=== PATIENT | female | born 1935 | race Caucasian/White ===

== ENCOUNTER 2018-11-27 13:09 | Inpatient (IN) | payer OTHER ==
[2018-11-27] MEDS ORDERED: NS 500 ML IV ONE (13:32)
--- NOTE | 2018-11-27 13:37 | EDPHY ---
H & P Stated Complaint: Pt had flu-like x2wks c fever/diarrhea. Near-sync, R hip pn. Time Seen by Provider: 11/27/18 13:15 HPI/ROS: CHIEF COMPLAINT: Right hip pain HISTORY OF PRESENT ILLNESS: This is an 83-year-old female who lives independently. She has been ill for the last 2-3 weeks. This illness began with diffuse achiness followed by cough and now diarrhea. The diarrhea has markedly decreased but she is still having occasional loose stools. She states that when she moves her bowels she "empties out completely". As result of all of this, she has been feeling weak. She got up today to get a bowl of cereal, felt lightheaded, as if she might faint, and landed on the floor. She had right hip pain after landing. She was unable to get up off of the floor on her own but was able to crawl to her phone and summon 911. She did not strike her head. She does not think that she had an actual loss of consciousness. She does not take any blood thinning medications. She denies headache, chest pain, abdominal pain, recent vomiting, shortness of breath, and urinary symptoms. REVIEW OF SYSTEMS: A ten system review of systems was performed and is negative with the exception of the items mentioned in the HPI. Past medical history: Right lower extremity fracture Hypothyroidism Anxiety Past surgical history: Surgical repair of right lower extremity fracture Social history: She lives independently. She has help from caring seen years 2 afternoons per week. She does not use tobacco products or alcohol. 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 General Appearance: Alert. Vital signs reviewed. Blood pressure 154/99. Head: Normocephalic atraumatic. Eyes: Pupils equal and round, no conjunctival injection, no discharge. Anicteric. ENT, Mouth: Mucous membranes are slightly dry, no oropharyngeal erythema or edema. Neck: Nontender to palpation of the cervical spine in the midline. No pain with active range of motion of her neck. Respiratory: Lungs are clear to auscultation; no wheezes, rales, or rhonchi. Cardiovascular: Regular rate and rhythm; no murmur, rub, or gallop. Gastrointestinal: Abdomen is soft and nontender, no masses or organomegaly, bowel sounds normal. Skin: Warm and dry, no rashes on exposed skin, normal color. Back: Nontender to palpation over the thoracolumbar spine. No CVAT. Pelvis: Stable and nontender. Extremities: No lower extremity edema, no calf tenderness or swelling. No foreshortening of the right leg or external rotation. She has an abrasion along the lateral aspect of the left knee and the left foot. She has full active range of motion of her left hip, knee, and ankle. Neurological: Alert and oriented. Moving all four extremities easily and equally. Sensation intact to light touch over all 4 extremities. Pulses: 2+ dorsalis pedis pulses bilaterally, 2+ right femoral pulse. Psychiatric: Normal affect. - Medical/Surgical History Hx Asthma: No Hx Chronic Respiratory Disease: No Hx Diabetes: No Hx Cardiac Disease: No Hx Renal Disease: No Hx Cirrhosis: No Hx Alcoholism: No Hx HIV/AIDS: No Hx Splenectomy or Spleen Trauma: No Other PMH: HYPOTHYROID, ANXIETY - Social History Smoking Status: Never smoked Constitutional: Initial Vital Signs Temperature (C) 36.6 C 11/27/18 13:16 Heart Rate 83 11/27/18 13:16 Respiratory Rate 16 11/27/18 13:16 Blood Pressure 154/99 H 11/27/18 13:16 O2 Sat (%) 96 11/27/18 13:16 O2 Delivery Mode Room Air Allergies/Adverse Reactions: bupropion HCl [From Wellbutrin] Allergy (Unknown, Verified 11/27/18 13:16) Other-Enter Comments Penicillins Allergy (Verified 11/27/18 14:25) Unknown Home Medications: Medication Instructions Recorded Mirtazapine [Remeron] 15 mg PO HS 05/20/14 busPIRone [Buspar (*)] 2.5 mg PO BID 05/20/14 Amitriptyline HCl [Elavil 10 mg 15 mg PO HS 11/27/18 (*)] Gabapentin [Neurontin 100 MG (*)] 100 mg PO HS 11/27/18 Latanoprost 0.005% [Xalatan 0.005% 1 drops EACHEYE HS 11/27/18 (*)] Levothyroxine [Synthroid 50 mcg 50 mcg PO DAILY06 11/27/18 (*)] Medical Decision Making - Diagnostics EKG Interpretation: 12 lead EKG is interpreted in [place] by emergency department physician. Sinus rhythm with a rate in 99. 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 Imaging Results: Imaging Impressions Hip X-Ray 11/27/18 13:31 Impression: Displaced right femoral neck fracture, as above. Chest X-Ray 11/27/18 13:50 Impression: No evidence for acute cardiopulmonary abnormality. ED Course/Re-evaluation: 83-year-old female status post presyncope and fall. She presents with right hip pain. X-ray shows right femoral neck fracture. Dr. Forman has been consulted and plans to operate this evening. She is currently NPO. She will be admitted to the hospitalist service. She has been made aware of the plan and expresses anxiety--case management involved to help her with arrangements at home, as she has people scheduled to come in and help her tomorrow. She remained stable in the emergency department. I reviewed her EKG, chest x-ray, hip x-ray, and labs. I note that her creatinine is slightly high at 1.2. She has had high creatinine in the past but her most recent value was normal. In 2017 she had a creatinine of 1.1 and again in 2010 she had elevated creatinine. I also note that her blood pressure is high in the emergency department. She does not report a history of hypertension and does not take antihypertensive medications, per her report. Her EKG is abnormal with evidence of previous infarct. She does not report previous myocardial infarction. I do not think that she has had an IN today. Differential Diagnosis: I considered a differential diagnosis that includes but is not limited to intracranial hemorrhage, skull fracture, concussion, vertebral injury, spinal cord injury, intrathoracic injury, intra-abdominal injury, long bone fractures, contusions, abrasions, and lacerations. - Data Points Laboratory Results: Laboratory Results 11/27/18 14:13 11/27/18 14:13 11/27/18 11/27/18 11/27/18 14:20 14:13 14:13 WBC 7.84 10^3/uL 10^3/uL (3.80-9.50) RBC 4.28 10^6/uL 10^6/uL (4.18-5.33) Hgb 13.6 g/dL g/dL (12.6-16.3) Hct 40.3 % % (38.0-47.0) MCV 94.2 fL fL (81.5-99.8) MCH 31.8 pg pg (27.9-34.1) MCHC 33.7 g/dL g/dL (32.4-36.7) RDW 13.8 % % (11.5-15.2) Plt Count 292 10^3/uL 10^3/uL (150-400) MPV 9.4 fL fL (8.7-11.7) Neut % (Auto) 79.5 % H % (39.3-74.2) Lymph % (Auto) 12.5 % L % (15.0-45.0) [place] % (Auto) 6.9 % % (4.5-13.0) Eos % (Auto) 0.3 % L % (0.6-7.6) Baso % (Auto) 0.5 % % (0.3-1.7) Nucleat RBC Rel Count 0.0 % % (0.0-0.2) Absolute Neuts (auto) 6.24 10^3/uL 10^3/uL (1.70-6.50) Absolute Lymphs (auto) 0.98 10^3/uL L 10^3/uL (1.00-3.00) Absolute Monos (auto) 0.54 10^3/uL 10^3/uL (0.30-0.80) Absolute Eos (auto) 0.02 10^3/uL L 10^3/uL (0.03-0.40) Absolute Basos (auto) 0.04 10^3/uL 10^3/uL (0.02-0.10) Absolute Nucleated RBC 0.00 10^3/uL 10^3/uL (0-0.01) Immature Gran % 0.3 % % (0.0-1.1) Immature Gran # 0.02 10^3/uL 10^3/uL (0.00-0.10) Sodium 134 mEq/L L mEq/L (135-145) Potassium 4.3 mEq/L mEq/L (3.5-5.2) Chloride 96 mEq/L L mEq/L (97-110) Carbon Dioxide 23 mEq/l mEq/l (22-31) Anion Gap 15 mEq/L H mEq/L (6-14) BUN 9 mg/dL mg/dL (7-23) Creatinine 1.2 mg/dL H mg/dL (0.6-1.0) Estimated GFR 43 Glucose 115 mg/dL H mg/dL (70-100) Calcium 10.1 mg/dL mg/dL (8.5-10.4) POC Troponin I 0.01 ng/mL ng/mL (0.00-0.08) Medications Given: Discontinued Medications Diazepam (Valium) 5 mg IVP ONCE ONE Stop: 11/27/18 14:43 Last Admin: 11/27/18 14:43 Dose: 5 mg Sodium Chloride (Ns) 500 mls @ 1,000 mls/hr IV EDNOW ONE PRN Reason: Protocol Stop: 11/27/18 14:01 Last Admin: 11/27/18 14:18 Dose: 500 mls Point of Care Test Results: Chemistry 11/27/18 14:20 POC Troponin I 0.01 ng/mL ng/mL (0.00-0.08) Departure - Departure Disposition: [facility] Inpatient Acute Clinical Impression: Abrasion Femoral neck fracture Qualifiers: Encounter type: initial encounter Fracture type: closed Laterality: right Qualified Code(s): S72.001A - Fracture of unspecified part of neck of right femur, initial encounter for closed fracture Condition: Fair
[2018-11-27 14:23] LABS: PLATELET COUNT 292 10^3/uL (150-400)
[2018-11-27] MEDS ORDERED: DIAZEPAM 5 MG/ML 1 ML SYR ONE (14:38)
[2018-11-27] MEDS ORDERED: DIAZEPAM 5 MG/ML 1 ML SYR IVP ONE (14:42)
[2018-11-27] MEDS ORDERED: ONDANSETRON 4 MG/2 ML VIAL IVP PRN ×2 (14:54→21:59)
[2018-11-27] MEDS ORDERED: PROMETHAZINE HCL 25 MG/ML INJ IVP PRN (14:54)
[2018-11-27] MEDS ORDERED: ONDANSETRON DISINTEGRATING 4 MG TAB PO PRN (14:54)
[2018-11-27] MEDS ORDERED: DIAZEPAM 5 MG/ML 1 ML SYR IVP PRN (14:54)
[2018-11-27] MEDS ORDERED: HYDROmorphONE/DILAUDID 1 MG/ML INJ IVP PRN (14:54)
--- NOTE | 2018-11-27 15:52 | CPEKG ---
Test Reason : OPEN Blood Pressure : / mmHG Vent. Rate : 099 BPM Atrial Rate : 099 BPM P-R Int : 207 ms QRS Dur : 091 ms QT Int : 349 ms P-R-T Axes : 086 -84 083 degrees QTc Int : 448 ms Sinus rhythm Borderline prolonged AL interval Inferior infarct, old Probable anteroseptal infarct, old Confirmed by Latosha Trujillo ([id number]) on 11/27/2018 3:52:15 PM Referred By: LATOSHA TRUJILLO Confirmed By:Latosha Trujillo
--- NOTE | 2018-11-27 15:56 | PDGENHP ---
History and Physical - Chief Complaint fall, right hip and leg pain - History of Present Illness 83 yo F with PMH that includes depression and anxiety as well as longstanding issues with diarrhea that she notes has been worse for the last several weeks. she has been followed by Dr. Bacon for this in the past. She notes that due to diarrhea and overall decreased oral intake she was feeling weak and dehydrated and today she got up to get something to eat and had an episode where she felt lightheaded and as if she might faint, she sort of fell towards the ground in order to lie down and let the sxs pass, but fell to the ground harder than expected. Immediately after that she had right hip pain and she states she knew it was bad when it started to involve her entire right leg and not just the portion she landed on. She denies any preceding chest pain or palpitations, she denies any other recent changes in her health. She is extremely anxious at the time of my evaluation and history is limited by her anxiety and difficulty answering questions due to that. History Information - Allergies/Home Medication List Allergies/Adverse Reactions: bupropion HCl [From Wellbutrin] Allergy (Unknown, Verified 11/27/18 13:16) Other-Enter Comments Penicillins Allergy (Verified 11/27/18 14:25) Unknown Home Medications: Mirtazapine [Remeron] 15 mg PO HS 05/20/14 [Last Taken 11/26/18] busPIRone [Buspar (*)] 2.5 mg PO BID 05/20/14 [Last Taken 11/26/18 21:00] Amitriptyline HCl [Elavil 10 mg (*)] 15 mg PO HS 11/27/18 [Last Taken 11/26/18] Gabapentin [Neurontin 100 MG (*)] 100 mg PO HS 11/27/18 [Last Taken 11/26/18] Latanoprost 0.005% [Xalatan 0.005% (*)] 1 drops EACHEYE HS 11/27/18 [Last Taken 2 Weeks Ago ~11/13/18] Levothyroxine [Synthroid 50 mcg (*)] 50 mcg PO DAILY06 11/27/18 [Last Taken ] I have personally reviewed and updated: family history, medical history, social history, surgical history - Past Medical History psychiatric history (depression and anxiety) Additional medical history: hypothyroid. IBS. chronic diarrhea - Surgical History Additional surgical history: tib fib fx with rods placed - Family History Positive for: cancer (father with prostate, sister with lymphoma) - Social History Smoking Status: Never smoked Alcohol Use: None Drug Use: None Additional social history: lives alone, has home health Review of Systems Review of Systems: ROS: 10pt was reviewed & negative except for what was stated in HPI & below Physical Exam Physical Exam: Temp Pulse Resp BP Pulse Ox 36.5 C 82 18 149/96 H 99 11/27/18 15:45 11/27/18 15:45 11/27/18 15:45 11/27/18 15:45 11/27/18 15:25 Constitutional: uncomfortable, No no apparent distress Eyes: PERRL, anicteric sclera Ears, Nose, Mouth, Throat: poor dentition, dry mucous membranes Cardiovascular: regular rate and rhythym, no murmur, rub, or gallop, No edema Respiratory: no respiratory distress, no rales or rhonchi Gastrointestinal: normoactive bowel sounds, soft, non-tender abdomen Genitourinary: no bladder tenderness Skin: warm, normal color Musculoskeletal: joint tenderness, pain with ROM Neurologic: AAOx3 Psychiatric: anxious Lab Data & Imaging Review 11/27/18 14:13 11/27/18 14:13 WBC 7.84 10^3/uL (3.80-9.50) 11/27/18 14:13 RBC 4.28 10^6/uL (4.18-5.33) 11/27/18 14:13 Hgb 13.6 g/dL (12.6-16.3) 11/27/18 14:13 Hct 40.3 % (38.0-47.0) 11/27/18 14:13 MCV 94.2 fL (81.5-99.8) 11/27/18 14:13 MCH 31.8 pg (27.9-34.1) 11/27/18 14:13 MCHC 33.7 g/dL (32.4-36.7) 11/27/18 14:13 RDW 13.8 % (11.5-15.2) 11/27/18 14:13 Plt Count 292 10^3/uL (150-400) 11/27/18 14:13 MPV 9.4 fL (8.7-11.7) 11/27/18 14:13 Neut % (Auto) 79.5 % (39.3-74.2) H 11/27/18 14:13 Lymph % (Auto) 12.5 % (15.0-45.0) L 11/27/18 14:13 [place] % (Auto) 6.9 % (4.5-13.0) 11/27/18 14:13 Eos % (Auto) 0.3 % (0.6-7.6) L 11/27/18 14:13 Baso % (Auto) 0.5 % (0.3-1.7) 11/27/18 14:13 Nucleat RBC Rel Count 0.0 % (0.0-0.2) 11/27/18 14:13 Absolute Neuts (auto) 6.24 10^3/uL (1.70-6.50) 11/27/18 14:13 Absolute Lymphs (auto) 0.98 10^3/uL (1.00-3.00) L 11/27/18 14:13 Absolute Monos (auto) 0.54 10^3/uL (0.30-0.80) 11/27/18 14:13 Absolute Eos (auto) 0.02 10^3/uL (0.03-0.40) L 11/27/18 14:13 Absolute Basos (auto) 0.04 10^3/uL (0.02-0.10) 11/27/18 14:13 Absolute Nucleated RBC 0.00 10^3/uL (0-0.01) 11/27/18 14:13 Immature Gran % 0.3 % (0.0-1.1) 11/27/18 14:13 Immature Gran # 0.02 10^3/uL (0.00-0.10) 11/27/18 14:13 Sodium 134 mEq/L (135-145) L 11/27/18 14:13 Potassium 4.3 mEq/L (3.5-5.2) 11/27/18 14:13 Chloride 96 mEq/L (97-110) L 11/27/18 14:13 Carbon Dioxide 23 mEq/l (22-31) 03/25/19 14:13 Anion Gap 15 mEq/L (6-14) H 11/27/18 14:13 BUN 9 mg/dL (7-23) 11/27/18 14:13 Creatinine 1.2 mg/dL (0.6-1.0) H 11/27/18 14:13 Estimated GFR 43 11/27/18 14:13 Glucose 115 mg/dL (70-100) H 11/27/18 14:13 Calcium 10.1 mg/dL (8.5-10.4) 11/27/18 14:13 POC Troponin I 0.01 ng/mL (0.00-0.08) 11/27/18 14:20 Visualized and Interpreted Chest x-ray results: Yes Chest X-Ray results: no infiltrate Visualized and Interpreted imaging results: Yes Interpretation: hip xray: displaced right femoral neck fracture Visualized and Interpreted EKG results: Yes EKG Interpretation: Positive for: Q waves Assessment & Plan Assessment: Femoral neck fracture (Acute) 83 yo F with minimal PMH other than depression, anxiety and hypothyroid who presents s/p fall at home with femoral neck fracture # acute right femoral neck fracture: Dr. Forman of ortho has been consulted and plans to take patient to OR likely tonight. Patient has revised cardiac risk index of 1 (only for q waves on ecg) which makes her relatively low risk for significant cardiac event in perioperative period (approximately 1%), no reason to delay surgery for further testing. # near syncope: in the setting of reportedly long standing diarrhea and likely due to volume depletion however given ecg abnormality without known hx of CAD will get echocardiogram in am for further evaluation, as above, no sxs of acute cardiac conditions so will not recommend deferring surgery for this # pavel: in the setting of weeks of dehydration due to diarrhea and feeling poorly as above, will provide IVF overnight and recheck in am # diarrhea: reviewing reports from Dr. Bacon it appears this has been an ongoing issue for her for at least a year, she has had extensive workup and tried various medications, sounds as though it waxes and wanes to some extent. Likely due to IBS and functional. # anxiety: patient with chronic anxiety that has been severe today in the setting of getting news about her fracture, started diazepam prn and will continue her buspar. Age noted in terms of diazepam order, but severity of her anxiety warrants at least a trial of benzodiazepines for today, will dc as soon as able # IP status, will require > 48 hours stay for eval/mgmt and urgent surgical intervention, may require SNF after dc given she lives alone # FC--unable to have full discussion about this given her anxiety, she states she does have an advance directive but could not find on file, will need to address further in am Patient new to my care. Old records reviewed and summarized as above. Care plan reviewed with ER doctor including plans for surgery.
[2018-11-27] MEDS ORDERED: LR 1,000 ML IV ONE ×2 (17:29→19:16)
--- NOTE | 2018-11-27 19:49 | PDANEPAE ---
ANE Past Medical History - Pulmonary History Hx Oxygen in Use at Home: No Hx Sleep Apnea: No Sleep Apnea Screening Result - Last Documented: Positive - Endocrine History Hx Diabetes: No ANE Review of Systems Review of Systems: ANE Patient History - Allergies Allergies/Adverse Reactions: bupropion HCl [From Wellbutrin] Allergy (Unknown, Verified 11/27/18 13:16) Other-Enter Comments Penicillins Allergy (Verified 11/27/18 14:25) Unknown - Home Medications Home Medications: Mirtazapine [Remeron] 15 mg PO HS 05/20/14 [Last Taken 11/26/18] busPIRone [Buspar (*)] 2.5 mg PO BID 05/20/14 [Last Taken 11/26/18 21:00] Amitriptyline HCl [Elavil 10 mg (*)] 15 mg PO HS 11/27/18 [Last Taken 11/26/18] Gabapentin [Neurontin 100 MG (*)] 100 mg PO HS 11/27/18 [Last Taken 11/26/18] Latanoprost 0.005% [Xalatan 0.005% (*)] 1 drops EACHEYE HS 11/27/18 [Last Taken 2 Weeks Ago ~11/13/18] Levothyroxine [Synthroid 50 mcg (*)] 50 mcg PO DAILY06 11/27/18 [Last Taken ] - NPO status NPO Since - Liquids (Date): 11/26/18 NPO Since - Liquids (Time): 19:00 NPO Since - Solids (Date): 11/27/18 NPO Since - Solids (Time): 10:00 - Smoking Hx Smoking Status: Never smoked - Alcohol Use Alcohol Use: None ANE Labs/Vital Signs - Labs Result Diagrams: 11/27/18 14:13 11/27/18 14:13 - Vital Signs Blood Pressure: 136/73 Heart Rate: 92 Respiratory Rate: 16 O2 Sat (%): 98 Height: 173.99 cm Weight: 39.916 kg ANE Physical Exam - Airway Mallampati Score: Class 2 - ASA Status ASA Status: II, E ANE Anesthesia Plan Anesthesia Plan: general endotracheal anesthesia, GA w LMA
[2018-11-27] MEDS ORDERED: PROPOFOL 200 MG/20 ML VIAL ONE (19:54)
[2018-11-27] MEDS ORDERED: fentaNYL 100 MCG/2 ML INJ ONE ×2 (19:54→22:08)
[2018-11-27] MEDS ORDERED: ONDANSETRON 4 MG/2 ML VIAL ONE (19:56)
[2018-11-27] MEDS ORDERED: LIDOCAINE 2% JELLY 6 ML TOPICAL SYR ONE (19:56)
[2018-11-27] MEDS ORDERED: CEFAZOLIN 2 GM/DEXTROSE/100 ML BAG IV ONE (19:57)
[2018-11-27] MEDS ORDERED: ceFAZolin 2 GM/DEXTROSE 100 ML IV ONE (20:01)
--- NOTE | 2018-11-27 21:41 | PDMN ---
Medical Necessity Medical necessity: Pt meets inpt criteria per MD order and [facility] S-600, Hip: Displaced Fracture of Femoral Neck, Hemiarthroplasty, [facility] IP only list, 3 days. 83 y/o s/p fall after near syncopal episode admitted w/acute R displaced femoral neck fx, urgent surg intervention: R hip hemiarthroplasty. Other active comorbidities include anxiety, severe upon presentation in ED, ongoing diarrhea , and MAHI in setting of dehydration. Anticipate>2MN for tx of above.
--- NOTE | 2018-11-27 21:56 | POSTOPPROG ---
Post Op Note Date of Operation: 11/27/18 Surgeon: Jhonny Forman Anesthesia: LMA Pre-op Diagnosis: R femoral neck fx Post-op Diagnosis: same Procedure: R hip hemiarthroplasty Inf/Abcess present in the surg proc area at time of surgery?: No EBL: 50-100
[2018-11-27] MEDS ORDERED: MEPERIDINE 25 MG/0.5 ML AMP IVP PRN (21:59)
[2018-11-27] MEDS ORDERED: METOCLOPRAMIDE 10 MG/2 ML VIAL IVP PRN (21:59)
[2018-11-27] MEDS ORDERED: NALOXONE HCL 0.4 MG/ML INJ IVP PRN (21:59)
[2018-11-27] MEDS ORDERED: LR 500 ML IV PRN (21:59)
--- NOTE | 2018-11-27 22:01 | POSTANESTH ---
Post Anesthetic Evaluation Cardiovascular Status: Normal, Stable Respiratory Status: Normal, Stable Level of Consciousness/Mental Status: Can Participate in Eval Pain Control: Adequate, Prn Tx Ordered Nausea/Vomiting Control: Adequate, Prn Tx Ordered Complications Possibly Related to Anesthesia: None Noted
[2018-11-27] MEDS: fentaNYL 100 MCG/2 ML INJ IVP PRN ×2 (22:24→22:34)
[2018-11-27] MEDS: busPIRone 5 MG TAB PO SCH (23:06)
[2018-11-27] MEDS: AMITRIPTYLINE HCL 10 MG TAB PO SCH (23:06)
[2018-11-27] MEDS: LATANOPROST 0.005% 2.5 ML OPHT DROPS EACHEYE SCH (23:07)
[2018-11-27] MEDS: GABAPENTIN 100 MG CAP PO SCH (23:07)
[2018-11-27] MEDS: NS 1,000 ML IV SCH (23:42)
[2018-11-28] MEDS: MIRTAZAPINE 15 MG TAB PO SCH ×2 (00:10→21:27)
[2018-11-28 05:05] LABS: PLATELET COUNT 248 10^3/uL (150-400)
[2018-11-28] MEDS: LEVOTHYROXINE 50 MCG TAB PO SCH (05:57)
[2018-11-28] MEDS: oxyCODONE IR 5 MG TAB PO PRN ×3 (06:49→16:44)
--- NOTE | 2018-11-28 07:07 | SOAPPROG ---
SOAP Progress Note Assessment/Plan: Assessment: S/P R hip hemiarthroplasty Pain tolerable Magaly po R hip dressing intact Lrg length and rotation~ equal Plan: OOB/PT SNF transfer when ready 11/28/18 07:06 Objective: Vital Signs Temp Pulse Resp BP Pulse Ox 36.3 C 111 H 16 125/82 H 91 L 11/28/18 04:27 11/28/18 04:27 11/28/18 04:27 11/28/18 04:27 11/28/18 04:27 Laboratory Results 11/28/18 04:21 11/28/18 04:21 11/27/18 11/28/18 11/29/18 05:59 05:59 05:59 Intake Total 1875 844 Output Total 650 Balance 1225 844 ICD10 Worksheet Patient Problems: Problems Problem Status Onset Abrasion Acute Femoral neck fracture Acute
--- NOTE | 2018-11-28 07:09 | PDIAF ---
- Diagnosis Code Status: Full Code - Medication Management Discharge Medications: electronically signed and located in the Home Medication List. - Orders Wound Care Instructions: Keep incision covered until bobby removed Sutures/Lloyd Site: R thigh Date to Remove Sutures/Lloyd: 12/13/18 Activity/Weight Bearing Restrictions: Weight bearas tolerated. Total hip precautions - Follow Up Care Current Providers and Referrals: Patient,NotPresent [Unknown] - As per Instructions
--- NOTE | 2018-11-28 07:21 | GCON ---
[f rep st] CONSULTATION REASON FOR CONSULTATION: Right hip pain. HISTORY RELATIVE TO CONSULTATION: Patient is an 83-year-old limited household ambulator with assisti ve devices, who sustained a fall resulting in a right femoral neck fracture. She presented to the em ergency room. She denies any previous problems or injuries relative to her hip. PHYSICAL EXAMINATION: GENERAL: She is holding her hip in an outwardly rotated position with shorten ing of her leg length. Her distal neurovascular exam is grossly intact. She has tenderness about th e anterior hip. IMAGING: AP and lateral radiographs of her hip show evidence of a displaced femoral neck fracture. ASSESSMENT: Right femoral neck fracture. PLAN: It is recommended that operative treatment be pursued. From an operative standpoint, hip carlton arthroplasty was recommended. This will be performed pending OR availability and medical clearance. /[id number]/MODL
[2018-11-28] MEDS: busPIRone 5 MG TAB PO SCH ×2 (07:36→21:27)
[2018-11-28] MEDS: NS 1,000 ML IV SCH (07:39)
--- NOTE | 2018-11-28 08:32 | HOSPPROG ---
Hospitalist Progress Note Assessment/Plan: # R hip fx - s/p SHREYA by Dr Forman, POD#1 - PT/OT - pain control with apap, norco, oxy # anxiety/depr - got one dose of valium IV - will dc today given age - cont buspar, elavil, remeron # tachycardia - many reasons currently, follow closely; doubt PE currently - recheck hgb later today # syncope - ECG with old inf and anteroseptal infarcts; no olds available and unable to find pt in [place] - echo ordered today # chronic diarrhea/IBS - followed by Dr Bacon # COR - did not want to discuss with me; cont FC for now # dvt ppx - will d/w Dr Forman when appropriate to start; will need prolonged course Subjective: no CP or SOB; does not want to discuss advance directive; wants to eat breakfast before getting out of bed Objective: Vital Signs Temp Pulse Resp BP Pulse Ox 36.5 C 106 H 16 113/70 93 11/28/18 07:30 11/28/18 07:30 11/28/18 07:30 11/28/18 07:30 11/28/18 07:30 Laboratory Results 11/28/18 04:21 11/28/18 04:21 11/27/18 11/28/18 11/29/18 05:59 05:59 05:59 Intake Total 1875 844 Output Total 650 Balance 1225 844 chart reviewed hip XR reviewed - Physical Exam Constitutional: cachectic, other (frail) Cardiovascular: regular rate and rhythym, no murmur, rub, or gallop Respiratory: no rales or rhonchi, clear to auscultation, No expiratory wheeze, No inspiratory crackles Gastrointestinal: soft, non-tender abdomen, no palpable masses, No guarding, No rebound, No distension ICD10 Worksheet Patient Problems: Problems Problem Status Onset Abrasion Acute Femoral neck fracture Acute
--- NOTE | 2018-11-28 09:02 | GOP ---
[f rep st] OPERATIVE REPORT DATE OF OPERATION: 11/27/2018 SURGEON: Jhonny Forman MD ANESTHESIA: General. PREOPERATIVE DIAGNOSIS: Right femoral neck fracture. POSTOPERATIVE DIAGNOSIS: Right femoral neck fracture. PROCEDURE PERFORMED: Right hip hemiarthroplasty. FINDINGS: ESTIMATED BLOOD LOSS: Approximately 100 mL. INDICATIONS: The patient is an 83-year-old limited ambulator who sustained a right femoral neck frac ture. Based on the nature of her injury, it was recommended that operative treatment consisting of r ight hip hemiarthroplasty be pursued. Patient acknowledged she understood the potential risks includ ing, but not limited to, bleeding, infection, neurovascular damage including loss of limb or limb fun ction, implant failure requiring revision, periprosthetic fracture, limb length discrepancy, or pain or limitations despite operative treatment and anesthetic risks. She acknowledged she understood the potential risks, planned procedure, and postoperative plan well, and had all questions answered prio r to surgery. She gave consent for the operative procedure. DESCRIPTION OF PROCEDURE: The patient was brought in the operating after IV antibiotics were adminis tered. She was placed in a supine position where general anesthetic was administered. Patient was t ransferred to a left lateral decubitus position on the operating table with pegboard support and gel padding. The right hip and lower extremity were prepped and draped in standard sterile fashion. An anterolateral approach was utilized for exposure. A longitudinal incision was made centered on the g reater trochanter. Dissection was carried with the electrocautery unit down to the gluteal fascia. The fascia was incised in line with the skin incision and extended down the proximal thigh. A limite d portion of the gluteal insertion was taken off the greater trochanter. The anterior capsule was id entified and opened in an H-type manner. A provisional neck cut was made with a saw. The femoral he ad was taken out in 1 piece with a corkscrew and measured to be 45 mm. A trial 45 mm cup size was pe rformed and found to be optimal. The hip was dislocated, and reaming was performed. A box osteotome was initially utilized to create a lateralizing position. The reamer was then placed on the intrame dullary canal. Sequential broaches were then used. A size 8 gave close to favorable contact. A siz e 9 gave excellent contact of the canal with stability of the stem to rotational and testing-type str esses. A -3 head and neck extension, 45 mm trial head was placed and reduction was obtained. The re duction was somewhat difficult, but very stable upon being performed. A definitive size 9 Ruddy he miarthroplasty press-fit implant was placed with a -3 initial head and a 45 mm bipolar head. Closed reduction was performed; once again, this was very stable. Leg lengths were measured and found to be equal. Attempts at dislocating the hip via maximal flexion and external rotation proved unsuccessfu l. Attention was directed toward closure. The capsule was closed with 0 Vicryl suture in interrupte d fashion. The gluteal reflected tendon was similarly inserted with 0 Vicryl suture in interrupted f ashion. The gluteal fascia was closed with 0 Vicryl suture in interrupted fashion. Deep subcutaneou s tissue closed with 3-0 Vicryl suture in interrupted fashion. Subcutaneous tissue closed with 3-0 V icryl in interrupted fashion. Skin closed with skin bobby. 0.5% Marcaine with epinephrine was inj ected in the wound sites. The wounds were dressed with sterile Adaptic, 4 x 4, and ultimately, an AB D. The patient tolerated the procedure well and was taken to the recovery room, extubated in stable condition postoperatively. All sponge, needle, and instrument counts were reported as being correct. DRAINS: None. COMPLICATIONS: None. PLAN: The patient will be admitted for medical management. She will be weightbearing on her operati ve extremity. /[id number]/MODL
[2018-11-28] MEDS: ENOXAPARIN 30 MG/0.3 ML SYR SC SCH (10:29)
--- NOTE | 2018-11-28 11:14 | ASMTCMCOM ---
CM Note CM Note Notes: Pt has R hip fx after fall at home. Pt resides alone, has some private duty care with [facility]. PT rec SNF. Pt provided SNF list, reports she will discuss SNF options with friends and let CM know choice. Pt non-triggering PASRR completed. D/c plan: SNF Date Signed: 11/28/2018 11:14 AM Electronically Signed By:YONG Cordon
[2018-11-28] MEDS: ACETAMINOPHEN 325 MG TAB PO PRN (12:42)
[2018-11-28] MEDS ORDERED: NS 1,000 ML IV ONE (14:45)
[2018-11-28] MEDS ORDERED: NS 1,000 ML IV SCH (17:30)
[2018-11-28 18:09] LABS: PLATELET COUNT 234 10^3/uL (150-400)
[2018-11-28] MEDS ORDERED: POTASSIUM CL 20 MEQ TAB PO ONE (18:36)
[2018-11-28] MEDS: GABAPENTIN 100 MG CAP PO SCH (21:25)
[2018-11-28] MEDS: AMITRIPTYLINE HCL 10 MG TAB PO SCH (21:25)
[2018-11-28] MEDS: LATANOPROST 0.005% 2.5 ML OPHT DROPS EACHEYE SCH (22:25)
[2018-11-29 05:14] LABS: PLATELET COUNT 194 10^3/uL (150-400)
[2018-11-29] MEDS: LEVOTHYROXINE 50 MCG TAB PO SCH (05:39)
[2018-11-29] MEDS: LR 1,000 ML IV SCH (07:07)
[2018-11-29] MEDS: ENOXAPARIN 30 MG/0.3 ML SYR SC SCH (08:55)
[2018-11-29] MEDS: busPIRone 5 MG TAB PO SCH ×2 (08:56→22:26)
[2018-11-29] MEDS: ACETAMINOPHEN 325 MG TAB PO PRN (08:58)
--- NOTE | 2018-11-29 09:16 | HOSPPROG ---
Hospitalist Progress Note Assessment/Plan: Linda is an 83 y/o female who fell at home and sustained a femoral neck fx. First encounter, chart reviewed. 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 Will evaluate her tomorrow and see how she is doing Subjective: Ana Laura said she wants to be strong enough to go to rehab. Objective: Vital Signs Temp Pulse Resp BP Pulse Ox 36.6 C 101 H 16 138/87 H 96 11/29/18 07:33 11/29/18 07:33 11/29/18 07:33 11/29/18 07:33 11/29/18 07:33 Laboratory Results 11/29/18 05:04 11/29/18 05:04 11/28/18 11/29/18 11/30/18 05:59 05:59 05:59 Intake Total 1875 1853 Output Total 650 500 Balance 1225 1353 - Physical Exam Constitutional: chronically ill appearing, cachectic Eyes: PERRL Ears, Nose, Mouth, Throat: hearing normal Respiratory: no respiratory distress Gastrointestinal: normoactive bowel sounds Skin: other (right hip w swelling) Musculoskeletal: generalized weakness Neurologic: AAOx3 Psychiatric: anxious ICD10 Worksheet Patient Problems: Problems Problem Status Onset Abrasion Acute Femoral neck fracture Acute
--- NOTE | 2018-11-29 12:45 | ECHO ---
[email or web address] [address] [address] Main: [phone] Echocardiography Examination Transthoracic Name: EVIE PARIKH MR#: [id number] Study Date: 11/29/2018 Study Time: 11:42 AM Date of : 1935 Age: 83 year(s) Height: 172.7 cm (68 in.) Weight: 39.92 kg (88 lb.) BSA: 1.44 m2 Gender: Female Examination: Echo Contrast: Image Quality: Adequate Rhythm: Heart Rate: BP: / Indication: q-waves on ECG Procedure Staff Referring Physician: Dope Edger: Kasandra Christian [facility] Reading Physician: Clemente Nance MD Requesting Provider: Indication: q-waves on ECG Measurements Chambers AV/MV Label Value Normal Value Label Value Normal Value IVSd, 2D 0.8 cm (0.6cm - 1.1cm) AV PGmean 5 mmHg LVDd, 2D 2.8 cm (3.9cm - 5.3cm) YANELY D (continuity eq. 2.4 cm2 LVDs, 2D 2 cm (2.1cm - 4cm) VTI) LVEF, 2D 58 % (54% - 74%) MV A Vmax 1.1 m/s LVEF, BP 68 % (55% - 70%) MV DT 165 ms LVOT PGmean 3 mmHg MV E' lateral 0.07 m/s LVOT Vmean 0.77 m/s MV E' mean 0.07 m/s LVOTd 1.9 cm (1.8cm - 2cm) MV E' septal 0.07 m/s LVPWd, 2D 0.9 cm MV E Vmax 0.84 m/s RVDd, 2D 2.2 cm (1.9cm - 3.8cm) MV E/A 0.76 LADs, 2D 1.9 cm (2.7cm - 3.8cm) MV E/E' lateral 11.5 Additional Vessels MV E/E' mean 12 Label Value Normal Value MV E/E' septal 11.5 (0.45 - 1.25) AoRoot, 2D 2.7 cm (1.4cm - 2.6cm) MV PHT 0.05 s MV PHT 45 ms MVA PHT 4.9 cm2 TV/PV Label Value Normal Value RA Pressure 5 mmHg RVSP 35 mmHg Patient: EVIE PARIKH Study Date: 11/29/2018 Page 1 of 3 11:42 AM TR Pmax 30 mmHg TR Vmax 2.76 m/s Conclusions Left Ventricle: Left ventricle is normal in size. Normal global systolic left ventricular function. The ejection fraction, measured by Simpsons method, is 68 %. Grade I Diastolic Dysfunction. Right Ventricle: Right ventricular systolic function is normal. Tricuspid Valve: Right Ventricular systolic pressure is measured at 35 mmHg. Pulmonary artery pressure is mildly increased. Pericardium: No pericardial effusion. Findings Technically difficult, patient very thin, limited imaging. Left Ventricle: Left ventricle is normal in size. Normal global systolic left ventricular function. The ejection fraction, measured by Simpsons method, is 68 %. Left ventricle wall thickness is normal. There are no regional wall motion abnormalities. Grade I Diastolic Dysfunction. Right Ventricle: Normal size right ventricle. Right ventricular systolic function is normal. Left Atrium: The left atrium is normal in size. Right Atrium: The right atrium is normal in size. Mitral Valve: Mitral valve appears structurally normal. Mild mitral regurgitation. No mitral valve stenosis. There is minimal mitral thickening. There is mild mitral annular calcification. Aortic Valve: No significant aortic valve regurgitation. There is no aortic stenosis. Aortic leaflets exhibit calcification. Aortic valve not well visualized. Tricuspid Valve: Tricuspid valve leaflets are structurally normal. Mild tricuspid regurgitation. No tricuspid valve stenosis. Right Ventricular systolic pressure is measured at 35 mmHg. Pulmonary artery pressure is mildly increased. Pulmonic Valve: Pulmonic valve not well visualized. Aorta: The aortic root size in 2D measures 2.7 cm. Aorta Measurements AoRoot, 2D is 2.7 cm. Pericardium: No pericardial effusion. Exam Details Procedure Ordered: Echo Procedure Status: Routine study Patient: EVIE PARIKH Study Date: 11/29/2018 Page 2 of 3 11:42 AM Image Quality: Adequate Facility Location: Cardiac Echo 1 (No Signature Object) Patient: EVIE PARIKH Study Date: 11/29/2018 Page 3 of 3 11:42 AM [id number]
--- NOTE | 2018-11-29 14:15 | SOAPPROG ---
SOAP Progress Note Assessment/Plan: a/p: 83 yo female, pod# 2 s/p right hip fx s/p right yulia by dr. shields, doing well, improving w/o issues, reports pain is relatively well controlled, no current issues/complaints -on hospitalist service -rle wbat -ptot -incentive spirometry/scd's/eber miguel Subjective: RLE: dressings c/d/i, no drainage appreciated, neg log roll, grossly nvid Objective: Vital Signs Temp Pulse Resp BP Pulse Ox 36.7 C 99 20 116/72 97 11/29/18 12:00 11/29/18 12:00 11/29/18 12:00 11/29/18 12:00 11/29/18 12:00 Laboratory Results 11/29/18 05:04 11/29/18 05:04 11/28/18 11/29/18 11/30/18 05:59 05:59 05:59 Intake Total 1875 2823 Output Total 650 500 Balance 1225 1353 ICD10 Worksheet Patient Problems: Problems Problem Status Onset Abrasion Acute Femoral neck fracture Acute
[2018-11-29] MEDS: HYDROCODONE/APAP 5/325 TAB PO PRN ×3 (14:20→22:25)
[2018-11-29] MEDS: GABAPENTIN 100 MG CAP PO SCH (22:25)
[2018-11-29] MEDS: MIRTAZAPINE 15 MG TAB PO SCH (22:26)
[2018-11-29] MEDS: AMITRIPTYLINE HCL 10 MG TAB PO SCH (22:26)
[2018-11-29] MEDS: LATANOPROST 0.005% 2.5 ML OPHT DROPS EACHEYE SCH (22:27)
[2018-11-30] MEDS: LEVOTHYROXINE 50 MCG TAB PO SCH (07:11)
[2018-11-30] MEDS: busPIRone 5 MG TAB PO SCH ×2 (08:18→20:24)
[2018-11-30] MEDS: HYDROCODONE/APAP 5/325 TAB PO PRN (08:19)
[2018-11-30] MEDS: ACETAMINOPHEN 325 MG TAB PO PRN ×3 (08:20→20:25)
[2018-11-30] MEDS: ENOXAPARIN 30 MG/0.3 ML SYR SC SCH (08:21)
--- NOTE | 2018-11-30 08:32 | HOSPPROG ---
Hospitalist Progress Note Assessment/Plan: Linda is an 83 y/o female who fell at home and sustained a femoral neck fx. 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 -reviewed echo results w Ana Laura, nothing acute noted # severe protein calorie malnutrition -underweight w a BMI of 13 -eating and drinking well # chronic diarrhea/IBS - followed by Dr Bacon # COR - # dvt ppx - Lovenox, will need a long course #plan: dc tomorrow most likely to [facility] Subjective: Ana Laura is feeling ok today, mainly wants me to talk w her brother after she finds his phone # Objective: Vital Signs Temp Pulse Resp BP Pulse Ox 36.5 C 100 15 130/76 H 94 11/30/18 07:52 11/30/18 07:52 11/30/18 07:52 11/30/18 07:52 11/30/18 07:52 Laboratory Results 11/29/18 05:04 11/29/18 05:04 11/29/18 11/30/18 12/01/18 05:59 05:59 05:59 Intake Total 1853 600 Output Total 500 350 100 Balance 1353 250 -100 - Physical Exam Constitutional: cachectic Eyes: PERRL Ears, Nose, Mouth, Throat: hard of hearing Cardiovascular: regular rate and rhythym, No tachycardia Respiratory: no respiratory distress Skin: warm, No normal color (pale) Musculoskeletal: generalized weakness Neurologic: AAOx3 Psychiatric: interacting appropriately ICD10 Worksheet Patient Problems: Problems Problem Status Onset Abrasion Acute Femoral neck fracture Acute
--- NOTE | 2018-11-30 09:58 | CPEKG ---
Test Reason : OPEN Blood Pressure : / mmHG Vent. Rate : 102 BPM Atrial Rate : 104 BPM P-R Int : 225 ms QRS Dur : 087 ms QT Int : 336 ms P-R-T Axes : 057 -73 082 degrees QTc Int : 438 ms Sinus tachycardia Prolonged CO interval Left anterior fascicular block Abnormal R-wave progression, early transition Consider left ventricular hypertrophy Similar to prior Confirmed by Ashish Bey ([id number]) on 11/30/2018 9:57:55 AM Referred By: Clayton Jacinto Confirmed By:Ashish Bey
--- NOTE | 2018-11-30 15:39 | ASMTCMCOM ---
CM Note CM Note Notes: Met with pt, she is here for a hip fracture. She lives alone and will need to transfer to SNF. She wants to stay in [place] and would like referral to go to [facility], they can accept and are waiting for insurance auth. DC Plan: SNF/ [facility] Date Signed: 11/30/2018 03:39 PM Electronically Signed By:Sabi Gracia RN
--- NOTE | 2018-11-30 18:14 | SOAPPROG ---
SOAP Progress Note Assessment/Plan: Assessment: Assessment/Plan: a/p: 83 yo female, pod# 3 s/p right hip fx s/p right yulia by dr. shields doing okay - pain with movement -on hospitalist service -rle wbat -ptot -incentive spirometry/scd's/eber miguel Plan: 11/30/18 18:13 Subjective: Ana Laura was seen this morning 730 am. She was just finishing on the bedside commode, with help from the aide. No acute events overnight. Pain movement. Objective: Vital Signs Temp Pulse Resp BP Pulse Ox 36.4 C 117 H 14 92/59 L 100 11/30/18 16:00 11/30/18 16:00 11/30/18 16:00 11/30/18 16:00 11/30/18 16:00 Laboratory Results 11/29/18 05:04 11/29/18 05:04 11/29/18 11/30/18 12/01/18 05:59 05:59 05:59 Intake Total 1853 600 Output Total 500 350 300 Balance 1353 250 -300 : dressings c/d/i, no drainage sacral decubitus dressing intact sensation intact digits mobile and well perfused grossly nvid ICD10 Worksheet Patient Problems: Problems Problem Status Onset Abrasion Acute Femoral neck fracture Acute
[2018-11-30] MEDS: AMITRIPTYLINE HCL 10 MG TAB PO SCH (20:24)
[2018-11-30] MEDS: GABAPENTIN 100 MG CAP PO SCH (20:25)
[2018-11-30] MEDS: MIRTAZAPINE 15 MG TAB PO SCH (20:25)
[2018-11-30] MEDS: LATANOPROST 0.005% 2.5 ML OPHT DROPS EACHEYE SCH (23:31)
[2018-12-01] MEDS: ACETAMINOPHEN 325 MG TAB PO PRN ×2 (06:07→12:33)
[2018-12-01] MEDS: LEVOTHYROXINE 50 MCG TAB PO SCH (06:07)
[2018-12-01] MEDS: busPIRone 5 MG TAB PO SCH (08:11)
[2018-12-01] MEDS: ENOXAPARIN 30 MG/0.3 ML SYR SC SCH (08:11)
--- NOTE | 2018-12-01 08:19 | HOSPPROG ---
Hospitalist Progress Note Assessment/Plan: Linda is an 83 y/o female who fell at home and sustained a femoral neck fx. 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 Objective: Vital Signs Temp Pulse Resp BP Pulse Ox 36.3 C 83 18 139/84 H 97 12/01/18 07:26 12/01/18 07:26 12/01/18 07:26 12/01/18 07:26 12/01/18 07:26 Laboratory Results 11/29/18 05:04 11/29/18 05:04 11/30/18 12/01/18 12/02/18 05:59 05:59 05:59 Intake Total 600 500 Output Total 350 700 Balance 250 -200 - Physical Exam Constitutional: no apparent distress, cachectic (temporal muscle wasting) Eyes: PERRL Ears, Nose, Mouth, Throat: hard of hearing Cardiovascular: No tachycardia Respiratory: no respiratory distress Skin: warm, other (right hip dressing dry, intact ; minimal swelling) Musculoskeletal: generalized weakness Neurologic: AAOx3 Psychiatric: interacting appropriately ICD10 Worksheet Patient Problems: Problems Problem Status Onset Abrasion Acute Femoral neck fracture Acute
--- NOTE | 2018-12-01 08:36 | PDIAF ---
- Diagnosis Diagnosis: r hip fx s/p SHREYA, anxiety, depression Code Status: Full Code - Medication Management Discharge Medications: electronically signed and located in the Home Medication List. - Orders Services needed: Physical Therapy, Occupational Therapy Diet Recommendation: cardiac -low fat low salt Diet Texture: Regular Texture Diet Wound Care Instructions: Keep incision covered until bobby removed Sutures/Bobby Site: R thigh Date to Remove Sutures/[place]: 12/13/18 Activity/Weight Bearing Restrictions: Weight bearas tolerated. Total hip precautions Additional Instructions: Right Lower Extremity: WBAT, rom as tolerated keep dressings clean/dry/intact, no application of ointments to incisions continue Lovenox until patient is increasingly active - Labs/Radiology BMP Date: 12/05/18 HCT/HGB Date: 12/05/18 - Follow Up Care Current Providers and Referrals: Jhonny Forman MD [Medical Doctor] - (follow up w/ dr. forman in office 1-2 weeks post op for wound check, sooner with issues) Patient,NotPresent [Unknown] - As per Instructions
[2018-12-01 15:17] VITALS: BP 90/64
--- NOTE | 2018-12-01 15:22 | ASMTLACE ---
LACE Length of stay for Answers: 4-6 days current admission Acuity / Level of Answers: Yes Care: Did the patient have an inpatient admission? 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
[2018-12-01] MEDS ORDERED: NS 250 ML IV ONE (15:24)
[2018-12-01] MEDS: LR 1,000 ML IV SCH (15:26)
--- NOTE | 2018-12-01 16:48 | ASDISCHSUM ---
Discharge Information Plan Status:SNF Medically Cleared to Leave:12/01/2018 Discharge Date:12/01/2018 04:22 PM D/C Disposition:Longterm Facility ADT D/C Disposition:Longterm Facility Projected Discharge Date:12/01/2018 11:00 AM Transportation at D/C:Wheelchair Van Discharge Delay Reason: Follow-Up Date:12/01/2018 11:00 AM Discharge Slot: Final Diagnosis: Placement Information Referral Type:*Long-Term/SNF Referral ID:[id number] Provider Name:[facility] Address 1:[address] Address 2: [facility]:[place] Selection Factors: State:[place] Patient Contact Information Contact Name:CARLOS Relationship:Friend Address: Work Phone: City: [facility] Phone: [facility] Code: Email: Financial Information Financial Class:BCOP Primary Plan Desc:ADITHYAROBERTO VERONICA PPO Primary Plan Number:[id number] Secondary Plan Desc: Secondary Plan Number: Assessment Information LACE LACE Length of stay for Answers: 4-6 days current admission Acuity / Level of Answers: Yes Care: Did the patient have an inpatient admission? 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 Pt resides alone, has some private duty care with [facility]. PT rec SNF. Pt provided SNF list, reports she will discuss SNF options with friends and let CM know choice. Pt non-triggering PASRR completed. D/c plan: SNF Date Signed: 11/28/2018 11:14 AM Electronically Signed By:YONG Cordon [facility] CM Progress Note CM Note CM Note Notes: Met with pt, she is here for a hip fracture. She lives alone and will need to transfer to SNF. She wants to stay in [place] and would like referral to go to [facility], they can accept and are waiting for insurance auth. DC Plan: SNF/ [facility] Date Signed: 11/30/2018 03:39 PM Electronically Signed By:Sabi Gracia RN Case Management Discharge Plan Note Case Management Discharge Discharge Order Complete? Answers: Yes Patient to Obtain Answers: Other Notes: [facility] Medications Transportation Arranged Answers: Other Notes: w/c van Transport will Pick (Date 12/01/2018 04:00 PM & Time) Faxed Final Orders Answers: Yes Agency/Facility Transfer Answers: Yes Report Printed & Faxed to Receiving Agency Discharge Comments Notes: Pt discharged to [facility] today. D/C meds, order, facility transfer sent via [facility]. Transport arranged by [facility] with their w/c van. Date Signed: 12/01/2018 04:46 PM Electronically Signed By:YONG Caldera Intervention Information
--- NOTE | 2018-12-01 18:09 | GDS ---
[f rep st] DISCHARGE SUMMARY DISCHARGE DIAGNOSES: 1. Right hip fracture. 2. Anxiety and depression. 3. Tachycardia. 4. Anemia. 5. Syncopal event. 6. Severe protein-calorie malnutrition. 7. Chronic diarrhea with irritable bowel syndrome. CONSULTATION: Dr. Forman. Briefly, the patient is an 83-year-old female. She fell at home and sustained a femoral neck fractur e. She was seen and evaluated by Dr. Forman. She had a SHREYA. She did very well with surgery. She w ill follow up with him in the outpatient setting. Her hospital stay was complicated by some tachycar shay. This, overall, is completely resolved. I suspect it was related to anxiety. HOSPITAL COURSE: 1. Right hip fracture. Weightbearing as tolerated and follow up with Dr. Forman in the outpatient s etting. 2. Anxiety with depression. She is on BuSpar, Elavil and Remeron. She does quite well when people explain things fully to her. 3. Tachycardia. Overall, resolved. 4. Anemia in the postop setting. [facility] 5. Syncope. Her ECG shows an old inferior-anterior septal infarct. I reviewed her echo results. N othing acute is noted. 6. Severe protein-calorie malnutrition. She is underweight with a BMI of 13. 7. Chronic diarrhea. Irritable bowel syndrome. No complaints during her stay. She sees Dr. Gurjit nguyen in the outpatient setting. DISCHARGE CONDITION: Stable. Blood pressure is 139/84, heart rate of 83, respiratory rate of 18, O2 sats on room air 97%, temperature 36.3 Celsius. MEDICATIONS AT DISCHARGE: Please see the EMR. DISCHARGE INSTRUCTIONS: 1. Follow up with Dr. Forman. 2. Weightbearing as tolerated to right lower extremity. 3. Continue her Lovenox until she is more active. Greater than 30 minutes discharging and coordinating her care. Copy requested to: [place] /[id number]/BENNIEL
== END 2018-12-01 16:22 | DRG 469 ==
LOC: EDUNIT# → F3N 15:37
PROVIDERS: ADMIT Internal Medicine; ATTEND Internal Medicine
PROC: 0SRR0JA Replacement of Right Hip Joint, Femoral Surface with Synthetic Substitute, Uncemented, Open Approach (ICD-10-PCS; principal; 2018-11-27 20:30)
DX: S72.041A Displaced fracture of base of neck of right femur, initial encounter for closed fracture (principal); E43 Unspecified severe protein-calorie malnutrition; W18.39XA Other fall on same level, initial encounter; Y92.019 Unspecified place in single-family (private) house as the place of occurrence of the external cause; E86.9 Volume depletion, unspecified; F32.9 Major depressive disorder, single episode, unspecified; F41.9 Anxiety disorder, unspecified; R00.0 Tachycardia, unspecified; D64.9 Anemia, unspecified; K58.0 Irritable bowel syndrome with diarrhea; E03.9 Hypothyroidism, unspecified
CPT/HCPCS: 84484-ER; 96374; 97116-GP; 97161-GP; 97165-GO; 97530-GP; 97535-GO; J0690; J1650; J2405; J2704; J3010; J3360

== ENCOUNTER 2018-12-13 12:45 | Inpatient (IN) | payer OTHER ==
--- NOTE | 2018-12-13 13:14 | EDPHY ---
H & P Stated Complaint: syncopal Time Seen by Provider: 12/13/18 12:46 HPI/ROS: CHIEF COMPLAINT: Syncope HISTORY OF PRESENT ILLNESS: This is an 83-year-old female who is residing at [facility] while undergoing rehabilitation following a femur fracture and right hip arthroplasty. She tells me that she has been constipated recently and was given senna for this problem. She had a bowel movement yesterday, but took more senna. This morning she had an urge to move her bowels. The staff to helped her to the bathroom in a wheelchair. While sitting on the toilet, defecating, she reportedly slumped to the side, losing consciousness. The next thing she remember she was lying on her bed and staff members were performed chest compressions. Apparently they. Chest compressions when she pushed them away. Paramedics state that at the time of their arrival she was awake, alert, had no complaints. It is not clear whether she was ever pulseless. She has some mild soreness of her chest but says that it does not really hurt very much. She does not feel short of breath. She is not having any chest pain. She does have a history of coronary artery disease and previous VT per EKG findings. REVIEW OF SYSTEMS: A ten system review of systems was performed and is negative with the exception of the items mentioned in the HPI. Past medical history: 1. Right femur fracture 2. Depression and anxiety 3. Hypothyroidism 4. Coronary artery disease Past surgical history: Right hip arthroplasty Social history: Prior to her femur fracture she was living independently. She is now in [facility] for rehab. She is currently walking with a walker. General Appearance: Alert. Vital signs reviewed. Eyes: Pupils equal and round, no conjunctival injection, no discharge. Anicteric. ENT, Mouth: Mucous membranes are moist, no oropharyngeal erythema or edema. Neck: No lymphadenopathy, supple. Respiratory: Lungs are clear to auscultation; no wheezes, rales, or rhonchi. Cardiovascular: Regular rate and rhythm; no murmur, rub, or gallop. Gastrointestinal: Abdomen is soft and nontender, no masses or organomegaly, bowel sounds normal. Skin: Warm and dry, no rashes on exposed skin, normal color. Back: Nontender to palpation over the thoracolumbar spine. No CVAT. Extremities: No lower extremity edema, no calf tenderness or swelling. Neurological: Alert and oriented. Moving all four extremities easily and equally. Cranial nerves II through XII are examined and are intact (visual acuity not tested). Strength is 5 over 5 bilaterally with testing of all major motor groups. Sensation is intact to light touch over all 4 extremities.Finger-to- nose is performed accurately. Psychiatric: Normal affect. - Medical/Surgical History Hx Asthma: No Hx Chronic Respiratory Disease: No Hx Diabetes: No Hx Cardiac Disease: No Hx Renal Disease: No Hx Cirrhosis: No Hx Alcoholism: No Hx HIV/AIDS: No Hx Splenectomy or Spleen Trauma: No Other PMH: HYPOTHYROID, ANXIETY - Social History Smoking Status: Never smoked Constitutional: Initial Vital Signs Temperature (C) 36.5 C 12/13/18 12:49 Heart Rate 76 12/13/18 12:49 Respiratory Rate 16 12/13/18 12:49 Blood Pressure 125/74 H 12/13/18 12:49 O2 Sat (%) 92 12/13/18 12:49 O2 Delivery Mode Room Air Allergies/Adverse Reactions: bupropion HCl [From Wellbutrin] Allergy (Unknown, Verified 12/13/18 12:51) Other-Enter Comments Penicillins Allergy (Verified 12/13/18 12:51) Unknown Home Medications: Medication Instructions Recorded Mirtazapine [Remeron] 15 mg PO HS 05/20/14 Amitriptyline HCl [Elavil 10 mg 15 mg PO HS 11/27/18 (*)] Gabapentin [Neurontin 100 MG (*)] 100 mg PO HS 11/27/18 Latanoprost 0.005% [Xalatan 0.005% 1 drops EACHEYE HS 12/14/18 (*)] busPIRone [Buspar (*)] 2.5 mg PO BID 12/14/18 Acetaminophen [Tylenol 325mg (*)] 650 mg PO Q4HRS PRN tab 12/16/18 Apixaban [Eliquis] 5 mg PO BID tab 12/16/18 Calcium Carbonate [Tums 500MG (*)] 500 mg PO TID #0 tab.chew 12/16/18 Cholecalciferol Vit D3 [Vitamin D3 5,000 units PO DAILY #0 each 12/16/18 2000 units tab (OTC)] Levothyroxine [Synthroid 100 mcg 100 mcg PO DAILY AT 6AM tab 12/16/18 (*)] Midodrine HCl [Proamatine/Midodrin] 5 mg PO TID@0800,1200,1600 tab 12/16/18 Medical Decision Making ED Course/Re-evaluation: 83-year-old female with what sounds like a syncopal episode while moving her bowels. Likely vasovagal, however there was some question as to whether not she was pulseless. Reportedly CPR was performed for a brief time. She denies chest pain. Her initial troponin is slightly elevated at 0.11. Of note, her D- dimer is elevated 8.42. She is mildly tachypneic at the time of my evaluations , denies shortness of breath. CT angiogram will be performed to assess for PE. She is receiving enoxaparin 30 mg subcu daily at [facility]. CT angiogram reveals a small subsegmental PE. Will continue enoxaparin, but consider higher dose. It is not clear that her syncopal episode was caused by this small PE. Hemoglobin hematocrit are slightly low, but consistent with previous values in our records. She is mildly hyponatremic. Differential Diagnosis: Syncope including but not limited to vasovagal syncope, arrhythmia, dehydration , and blood loss. - Data Points Laboratory Results: Laboratory Results 12/14/18 08:34 12/14/18 08:34 Medications Given: Discontinued Medications Acetaminophen (Tylenol) 650 mg PO Q4HRS PRN PRN Reason: Pain, Mild/Fever, Can Take PO Stop: 06/11/19 16:19 Last Admin: 12/16/18 15:14 Dose: 650 mg Amitriptyline HCl (Elavil) 15 mg PO HS NATIVIDAD Stop: 06/11/19 20:59 Last Admin: 12/15/18 20:27 Dose: 15 mg Buspirone HCl (Buspar) 2.5 mg PO BID NATIVIDAD Stop: 06/11/19 20:59 Last Admin: 12/16/18 08:46 Dose: 2.5 mg Calcium Carbonate (Tums) 500 mg PO TID [facility]IVIDAD Stop: 06/13/19 15:59 Last Admin: 12/16/18 08:46 Dose: 500 mg Cholecalciferol (Vitamin D) 2,000 units PO DAILY [facility]IDAD Stop: 06/13/19 08:59 Last Admin: 12/15/18 09:00 Dose: 2,000 units Cholecalciferol (Vitamin D) 5,000 units PO DAILY [facility] Stop: 06/14/19 08:59 Last Admin: 12/16/18 08:45 Dose: 5,000 units Enoxaparin Sodium (Lovenox) 50 mg SC BID [facility]IDAD Stop: 06/11/19 20:59 Last Admin: 12/16/18 08:45 Dose: 50 mg Gabapentin (Neurontin) 100 mg PO HS [facility] Stop: 06/11/19 20:59 Last Admin: 12/15/18 20:25 Dose: 100 mg Sodium Chloride (Ns) 500 mls @ 0 mls/hr IV ONCE ONE PRN Reason: Wide Open Stop: 12/15/18 01:31 Last Admin: 12/15/18 01:54 Dose: 500 mls Sodium Chloride (Ns) 1,000 mls @ 150 mls/hr IV CONT [facility] Stop: 06/13/19 09:59 Last Admin: 12/16/18 06:23 Dose: 1,000 mls Latanoprost (Xalatan 0.005%) 1 drops EACHEYE [facility] Stop: 06/12/19 20:59 Last Admin: 12/15/18 20:25 Dose: Not Given Levothyroxine Sodium (Synthroid) 100 mcg PO DAILY AT 6AM [facility] Stop: 06/12/19 05:59 Last Admin: 12/16/18 06:20 Dose: 100 mcg Midodrine (Proamatine) 5 mg PO TID@0800,1200,1600 [facility] Stop: 06/13/19 09:40 Last Admin: 12/16/18 16:10 Dose: 5 mg Mirtazapine (Remeron) 15 mg PO HS [facility] Stop: 06/11/19 20:59 Last Admin: 12/15/18 20:27 Dose: 15 mg Polyethylene Glycol (Miralax) 17 gm PO DAILY PRN; Protocol PRN Reason: Constipation, patient prefers Stop: 06/11/19 16:23 Last Admin: 12/16/18 09:06 Dose: 17 gm Senna/Docusate Sodium (Senokot-S) 1 - 2 tab PO BID [facility]IVIDAD PRN Reason: Protocol Stop: 06/11/19 20:59 Last Admin: 12/14/18 09:14 Dose: Not Given Point of Care Test Results: Chemistry 12/13/18 12/13/18 15:56 13:14 POC Troponin I 0.01 ng/mL ng/mL 0.11 ng/mL H ng/mL (0.00-0.08) (0.00-0.08) Departure - Departure Disposition: [facility] Inpatient Acute Condition: Good
[2018-12-13 13:19] LABS: PLATELET COUNT 277 10^3/uL (150-400)
--- NOTE | 2018-12-13 13:29 | CPEKG ---
Test Reason : OPEN Blood Pressure : / mmHG Vent. Rate : 080 BPM Atrial Rate : 080 BPM P-R Int : 210 ms QRS Dur : 092 ms QT Int : 367 ms P-R-T Axes : 047 -70 055 degrees QTc Int : 424 ms Sinus rhythm Inferior infarct, old Anterior infarct, old artifact Confirmed by Sana Duckworth ([id number]) on 12/13/2018 1:29:05 PM Referred By: Sana Duckworth Confirmed By:Sana Duckworth
[2018-12-13] MEDS ORDERED: IOPAMIDOL (ISOVUE 370) 100 ML BTL IV ONE (14:01)
[2018-12-13] MEDS ORDERED: ONDANSETRON 4 MG/2 ML VIAL IVP PRN (16:20)
[2018-12-13] MEDS ORDERED: ONDANSETRON DISINTEGRATING 4 MG TAB PO PRN (16:20)
[2018-12-13] MEDS ORDERED: BISACODYL 10 MG SUPP PR PRN (16:24)
[2018-12-13] MEDS ORDERED: POLYETHYLENE GLYCOL 3350 17 GM PKT PO PRN (16:24)
[2018-12-13] MEDS ORDERED: MAGNESIUM HYDROXIDE 30 ML UDCUP PO PRN (16:24)
[2018-12-13] MEDS ORDERED: LACTULOSE 20 GM/30 ML UDCUP PO PRN (16:24)
--- NOTE | 2018-12-13 16:44 | PDGENHP ---
<Soraya Isaacs - Last Filed: 12/13/18 19:03> History and Physical - Chief Complaint Syncope - History of Present Illness This is an 83-year-old female with history of coronary artery disease, depression anxiety presenting to the emergency room via EMS from [facility] after enduring a syncopal event with loss of consciousness. She recently endured a right hip hemiarthroplasty in late November of this year. Today at [facility] while she was using the toilet for possible bowel movement she had a syncopal event and apparently lost consciousness. Next thing she remembers she was in bed and chest compressions were performed. It is undetermined if she was pulseless or not. By the time EMS showed up she was alert and oriented and responding appropriately. She tells me no presyncopal events took place, she denies lightheadedness of feelings of nausea. She does endorse constipation issues especially with narcotic use. Her last full bowel movement was yesterday, she does describe having a small bowel movement prior to her syncopal event. She has mild chest pain due to the chest compressions otherwise no complaints of chest pain, nausea , fever, chills, or vomiting. She does have an elevated D-dimer which was 8.[address] a with contrast shows single subsegmental acute pulmonary embolism in the right lower lobe. It also shows trace left effusion and left basilar atelectasis. She is being admitted for further workup, treatment, and monitoring History Information - Allergies/Home Medication List Allergies/Adverse Reactions: bupropion HCl [From Wellbutrin] Allergy (Unknown, Verified 12/13/18 12:51) Other-Enter Comments Penicillins Allergy (Verified 12/13/18 12:51) Unknown Home Medications: Mirtazapine [Remeron] 15 mg PO HS 05/20/14 [Last Taken 12/12/18] busPIRone [Buspar (*)] 2.5 mg PO BID 05/20/14 [Last Taken 12/13/18] Amitriptyline HCl [Elavil 10 mg (*)] 15 mg PO HS 11/27/18 [Last Taken 12/12/18] Gabapentin [Neurontin 100 MG (*)] 100 mg PO HS 11/27/18 [Last Taken 12/12/18] Levothyroxine [Synthroid 50 mcg (*)] 50 mcg PO DAILY06 11/27/18 [Last Taken 06/23] I have personally reviewed and updated: family history, medical history, social history, surgical history - Past Medical History psychiatric history (depression and anxiety) Additional medical history: hypothyroid. IBS. chronic diarrhea - Surgical History Additional surgical history: tib fib fx with rods placed - Family History Positive for: cancer (father with prostate, sister with lymphoma) - Social History Smoking Status: Never smoked Alcohol Use: None Drug Use: None Additional social history: lives alone, has home health Review of Systems Review of Systems: ROS: 10pt was reviewed & negative except for what was stated in HPI & below Physical Exam Physical Exam: Lab data and imaging were reviewed. Sodium: 132 Initial troponin: 0.11 D-dimer: 8.42 BUN/Cr: 11/1.0 EKG: Sinus rhythm with left axis deviation. Chest x-ray: New small left pleural effusion. Chest CTA with contrast: See HPI. Temp Pulse Resp BP Pulse Ox 36.5 C 80 18 117/75 97 12/13/18 12:49 12/13/18 15:48 12/13/18 15:48 12/13/18 15:48 12/13/18 15:48 Constitutional: other (Moderately in distress due to anxiety; frail in appearance) Eyes: PERRL, anicteric sclera, EOMI Ears, Nose, Mouth, Throat: moist mucous membranes, hearing normal, ears appear normal, no oral mucosal ulcers Cardiovascular: regular rate and rhythym, no murmur, rub, or gallop, No edema Peripheral Pulses: 2+: dorsalis-pedis (R) (+DF/PF), dorsalis-pedis (L) (+DF/PF) Respiratory: no respiratory distress, no rales or rhonchi, clear to auscultation Gastrointestinal: normoactive bowel sounds, soft, non-tender abdomen, no palpable masses Genitourinary: no bladder fullness, no bladder tenderness Skin: warm, normal color, no rashes or abrasions, no fluctuance, no induration, No mottled Musculoskeletal: full muscle strength, no muscle tenderness, normal joint ROM, no joint effusions, other (In regards to the right hip, surgical pain noted with movement. She may be weight-bearing as tolerated to right lower extremity. ) Neurologic: AAOx3, sensation intact bilaterally, CN II-XII Intact Psychiatric: interacting appropriately, not encephalopathic, thought process linear, anxious Lymph, Heme, Immunologic: no cervical LAD, no supraclavicular LAD Lab Data & Imaging Review 12/13/18 13:11 12/13/18 13:11 WBC 8.40 10^3/uL (3.80-9.50) 12/13/18 13:11 RBC 3.07 10^6/uL (4.18-5.33) L 12/13/18 13:11 Hgb 10.1 g/dL (12.6-16.3) L 12/13/18 13:11 Hct 31.0 % (38.0-47.0) L 12/13/18 13:11 MCV 101.0 fL (81.5-99.8) H 12/13/18 13:11 MCH 32.9 pg (27.9-34.1) 12/13/18 13:11 MCHC 32.6 g/dL (32.4-36.7) 12/13/18 13:11 RDW 18.0 % (11.5-15.2) H 12/13/18 13:11 Plt Count 277 10^3/uL (150-400) 12/13/18 13:11 MPV 8.8 fL (8.7-11.7) 12/13/18 13:11 Neut % (Auto) 76.3 % (39.3-74.2) H 12/13/18 13:11 Lymph % (Auto) 14.0 % (15.0-45.0) L 12/13/18 13:11 [place] % (Auto) 8.0 % (4.5-13.0) 12/13/18 13:11 Eos % (Auto) 0.5 % (0.6-7.6) L 12/13/18 13:11 Baso % (Auto) 0.4 % (0.3-1.7) 12/13/18 13:11 Nucleat RBC Rel Count 0.0 % (0.0-0.2) 12/13/18 13:11 Absolute Neuts (auto) 6.41 10^3/uL (1.70-6.50) 12/13/18 13:11 Absolute Lymphs (auto) 1.18 10^3/uL (1.00-3.00) 12/13/18 13:11 Absolute Monos (auto) 0.67 10^3/uL (0.30-0.80) 12/13/18 13:11 Absolute Eos (auto) 0.04 10^3/uL (0.03-0.40) 12/13/18 13:11 Absolute Basos (auto) 0.03 10^3/uL (0.02-0.10) 12/13/18 13:11 Absolute Nucleated RBC 0.00 10^3/uL (0-0.01) 12/13/18 13:11 Immature Gran % 0.8 % (0.0-1.1) 12/13/18 13:11 Immature Gran # 0.07 10^3/uL (0.00-0.10) 12/13/18 13:11 Platelet Estimate ADEQUATE (ADEQ) 12/13/18 13:11 Polychromasia 1+ H 12/13/18 13:11 Oval Macrocytes 2+ H 12/13/18 13:11 D-Dimer 8.42 ug/mLFEU (0.00-0.50) H 12/13/18 13:11 Sodium 132 mEq/L (135-145) L 12/13/18 13:11 Potassium 4.6 mEq/L (3.5-5.2) 12/13/18 13:11 Chloride 100 mEq/L (97-110) 12/13/18 13:11 Carbon Dioxide 21 mEq/l (22-31) L 12/13/18 13:11 Anion Gap 11 mEq/L (6-14) 12/13/18 13:11 BUN 11 mg/dL (7-23) 12/13/18 13:11 Creatinine 1.0 mg/dL (0.6-1.0) 12/13/18 13:11 Estimated GFR 53 12/13/18 13:11 Glucose 91 mg/dL (70-100) 12/13/18 13:11 Calcium 8.9 mg/dL (8.5-10.4) 12/13/18 13:11 POC Troponin I 0.01 ng/mL (0.00-0.08) 12/13/18 15:56 NT-Pro-B Natriuret Pep 230 pg/mL (0-450) 12/13/18 13:11 Assessment & Plan Plan: This is an 83-year-old female presenting to the emergency room's after enduring a syncopal event while attempting to have a bowel movement at [facility]. The next thing she remembers is being in bed and staff performing chest compressions however it is unknown whether she was pulseless or not. She awoke and pushed the staff away. When EMS evaluated her she was alert and oriented and acting appropriately. She is moderately anxious about current situation. She denies any presyncopal symptoms prior to her loss of consciousness. It seems as though this is vasovagal however we will work her up to ensure no cardiac issues are present. Vital signs are the following: Blood pressure 117/75, pulse 80, respirations 18 , oxygen saturation on room air 97%, temperature 36.5c #syncope with loss of consciousness with unknown etiology; suspected vasovagal -echo complete pending -initial troponin at 1:00 PM this afternoon was 0.11, repeat troponin at 4:00PM this afternoon was 0.01. I suspect troponin to be moderately elevated due to chest compressions performed however will cycle troponin every 6 hr x 3 -will cycle 1 more EKG later tonight, then p.r.n. should she become symptomatic -continuous tele monitoring -TSH is elevated at 63.900. Checking a free T4 and total T3. I am holding her levothyroxine tonight. #pulmonary embolism: Another possible reason for her syncopal event -she is on Lovenox for her right hip surgery. She received Lovenox while in the emergency room. We will continue Lovenox twice daily. #constipation -last full bowel movement was yesterday. Reports having a small bowel movement prior to her syncopal event. Constipation most likely related to narcotic use. She is on a bowel regimen now. # hyponatremia (132) -encourage food or fluids with sodium -will recheck CBC tomorrow and re-evaluate # anemia -this appears to be stable since late November admission to the emergency room. We will continue to monitor will recheck CBC in the a.m. # right hip hemiarthroplasty -pain management p.o. p.r.n. -PT and OT to evaluate and treat; she is weight-bearing as tolerated # depression and anxiety -continue eavil, BuSpar, gabapentin, and Remeron Diet: Regular Treatment: Lovenox sub Q BID Code: Full Dispo: Admit to observation <Clayton Jacinto - Last Filed: 12/13/18 19:59> History and Physical - History of Present Illness Review of Systems Review of Systems: Physical Exam Physical Exam: Temp Pulse Resp BP Pulse Ox 36.5 C 86 20 117/75 95 12/13/18 12:49 12/13/18 19:03 12/13/18 19:03 12/13/18 15:48 12/13/18 19:03 Lab Data & Imaging Review 12/13/18 13:11 12/13/18 13:11 WBC 8.40 10^3/uL (3.80-9.50) 12/13/18 13:11 RBC 3.07 10^6/uL (4.18-5.33) L 12/13/18 13:11 Hgb 10.1 g/dL (12.6-16.3) L 12/13/18 13:11 Hct 31.0 % (38.0-47.0) L 12/13/18 13:11 MCV 101.0 fL (81.5-99.8) H 12/13/18 13:11 MCH 32.9 pg (27.9-34.1) 12/13/18 13:11 MCHC 32.6 g/dL (32.4-36.7) 12/13/18 13:11 RDW 18.0 % (11.5-15.2) H 12/13/18 13:11 Plt Count 277 10^3/uL (150-400) 12/13/18 13:11 MPV 8.8 fL (8.7-11.7) 12/13/18 13:11 Neut % (Auto) 76.3 % (39.3-74.2) H 12/13/18 13:11 Lymph % (Auto) 14.0 % (15.0-45.0) L 12/13/18 13:11 [place] % (Auto) 8.0 % (4.5-13.0) 12/13/18 13:11 Eos % (Auto) 0.5 % (0.6-7.6) L 12/13/18 13:11 Baso % (Auto) 0.4 % (0.3-1.7) 12/13/18 13:11 Nucleat RBC Rel Count 0.0 % (0.0-0.2) 12/13/18 13:11 Absolute Neuts (auto) 6.41 10^3/uL (1.70-6.50) 12/13/18 13:11 Absolute Lymphs (auto) 1.18 10^3/uL (1.00-3.00) 12/13/18 13:11 Absolute Monos (auto) 0.67 10^3/uL (0.30-0.80) 12/13/18 13:11 Absolute Eos (auto) 0.04 10^3/uL (0.03-0.40) 12/13/18 13:11 Absolute Basos (auto) 0.03 10^3/uL (0.02-0.10) 12/13/18 13:11 Absolute Nucleated RBC 0.00 10^3/uL (0-0.01) 12/13/18 13:11 Immature Gran % 0.8 % (0.0-1.1) 12/13/18 13:11 Immature Gran # 0.07 10^3/uL (0.00-0.10) 12/13/18 13:11 Platelet Estimate ADEQUATE (ADEQ) 12/13/18 13:11 Polychromasia 1+ H 12/13/18 13:11 Oval Macrocytes 2+ H 12/13/18 13:11 D-Dimer 8.42 ug/mLFEU (0.00-0.50) H 12/13/18 13:11 Sodium 132 mEq/L (135-145) L 12/13/18 13:11 Potassium 4.6 mEq/L (3.5-5.2) 12/13/18 13:11 Chloride 100 mEq/L (97-110) 12/13/18 13:11 Carbon Dioxide 21 mEq/l (22-31) L 12/13/18 13:11 Anion Gap 11 mEq/L (6-14) 12/13/18 13:11 BUN 11 mg/dL (7-23) 12/13/18 13:11 Creatinine 1.0 mg/dL (0.6-1.0) 12/13/18 13:11 Estimated GFR 53 12/13/18 13:11 Glucose 91 mg/dL (70-100) 12/13/18 13:11 Calcium 8.9 mg/dL (8.5-10.4) 12/13/18 13:11 POC Troponin I 0.01 ng/mL (0.00-0.08) 12/13/18 15:56 Troponin I < 0.012 ng/mL (0.000-0.034) 12/13/18 19:06 NT-Pro-B Natriuret Pep 230 pg/mL (0-450) 12/13/18 13:11 TSH 63.900 uIU/mL (0.465-4.680) H 12/13/18 13:11 Assessment & Plan Plan: Patient seen and evaluated independently and care plan reviewed with NGOC Isaacs, agree with her assessment and plan as outlined above. Please see separate documentation for further details.
--- NOTE | 2018-12-13 17:35 | PDGENHP ---
History and Physical - Chief Complaint Syncope History Information - Allergies/Home Medication List Allergies/Adverse Reactions: bupropion HCl [From Wellbutrin] Allergy (Unknown, Verified 12/13/18 12:51) Other-Enter Comments Penicillins Allergy (Verified 12/13/18 12:51) Unknown Home Medications: Mirtazapine [Remeron] 15 mg PO HS 05/20/14 [Last Taken 11/26/18] busPIRone [Buspar (*)] 2.5 mg PO BID 05/20/14 [Last Taken 11/26/18 21:00] Amitriptyline HCl [Elavil 10 mg (*)] 15 mg PO HS 11/27/18 [Last Taken 11/26/18] Gabapentin [Neurontin 100 MG (*)] 100 mg PO HS 11/27/18 [Last Taken 11/26/18] Latanoprost 0.005% [Xalatan 0.005% (*)] 1 drops EACHEYE HS 11/27/18 [Last Taken 2 Weeks Ago ~11/13/18] Levothyroxine [Synthroid 50 mcg (*)] 50 mcg PO DAILY06 11/27/18 [Last Taken ] - Past Medical History psychiatric history (depression and anxiety) Additional medical history: hypothyroid. IBS. chronic diarrhea - Surgical History Additional surgical history: tib fib fx with rods placed - Family History Positive for: cancer (father with prostate, sister with lymphoma) - Social History Smoking Status: Never smoked Additional social history: lives alone, has home health Review of Systems Review of Systems: Physical Exam Physical Exam: Temp Pulse Resp BP Pulse Ox 36.5 C 80 18 117/75 97 12/13/18 12:49 12/13/18 15:48 12/13/18 15:48 12/13/18 15:48 12/13/18 15:48 Lab Data & Imaging Review 12/13/18 13:11 12/13/18 13:11 WBC 8.40 10^3/uL (3.80-9.50) 12/13/18 13:11 RBC 3.07 10^6/uL (4.18-5.33) L 12/13/18 13:11 Hgb 10.1 g/dL (12.6-16.3) L 12/13/18 13:11 Hct 31.0 % (38.0-47.0) L 12/13/18 13:11 MCV 101.0 fL (81.5-99.8) H 12/13/18 13:11 MCH 32.9 pg (27.9-34.1) 12/13/18 13:11 MCHC 32.6 g/dL (32.4-36.7) 12/13/18 13:11 RDW 18.0 % (11.5-15.2) H 12/13/18 13:11 Plt Count 277 10^3/uL (150-400) 12/13/18 13:11 MPV 8.8 fL (8.7-11.7) 12/13/18 13:11 Neut % (Auto) 76.3 % (39.3-74.2) H 12/13/18 13:11 Lymph % (Auto) 14.0 % (15.0-45.0) L 12/13/18 13:11 [place] % (Auto) 8.0 % (4.5-13.0) 12/13/18 13:11 Eos % (Auto) 0.5 % (0.6-7.6) L 12/13/18 13:11 Baso % (Auto) 0.4 % (0.3-1.7) 12/13/18 13:11 Nucleat RBC Rel Count 0.0 % (0.0-0.2) 12/13/18 13:11 Absolute Neuts (auto) 6.41 10^3/uL (1.70-6.50) 12/13/18 13:11 Absolute Lymphs (auto) 1.18 10^3/uL (1.00-3.00) 12/13/18 13:11 Absolute Monos (auto) 0.67 10^3/uL (0.30-0.80) 12/13/18 13:11 Absolute Eos (auto) 0.04 10^3/uL (0.03-0.40) 12/13/18 13:11 Absolute Basos (auto) 0.03 10^3/uL (0.02-0.10) 12/13/18 13:11 Absolute Nucleated RBC 0.00 10^3/uL (0-0.01) 12/13/18 13:11 Immature Gran % 0.8 % (0.0-1.1) 12/13/18 13:11 Immature Gran # 0.07 10^3/uL (0.00-0.10) 12/13/18 13:11 Platelet Estimate ADEQUATE (ADEQ) 12/13/18 13:11 Polychromasia 1+ H 12/13/18 13:11 Oval Macrocytes 2+ H 12/13/18 13:11 D-Dimer 8.42 ug/mLFEU (0.00-0.50) H 12/13/18 13:11 Sodium 132 mEq/L (135-145) L 12/13/18 13:11 Potassium 4.6 mEq/L (3.5-5.2) 12/13/18 13:11 Chloride 100 mEq/L (97-110) 12/13/18 13:11 Carbon Dioxide 21 mEq/l (22-31) L 12/13/18 13:11 Anion Gap 11 mEq/L (6-14) 12/13/18 13:11 BUN 11 mg/dL (7-23) 12/13/18 13:11 Creatinine 1.0 mg/dL (0.6-1.0) 12/13/18 13:11 Estimated GFR 53 12/13/18 13:11 Glucose 91 mg/dL (70-100) 12/13/18 13:11 Calcium 8.9 mg/dL (8.5-10.4) 12/13/18 13:11 POC Troponin I 0.01 ng/mL (0.00-0.08) 12/13/18 15:56 NT-Pro-B Natriuret Pep 230 pg/mL (0-450) 12/13/18 13:11
[2018-12-13] MEDS: AMITRIPTYLINE HCL 10 MG TAB PO SCH (19:54)
[2018-12-13] MEDS: GABAPENTIN 100 MG CAP PO SCH (19:54)
[2018-12-13] MEDS: MIRTAZAPINE 15 MG TAB PO SCH (19:56)
[2018-12-13] MEDS: busPIRone 5 MG TAB PO SCH (19:56)
[2018-12-13] MEDS: ENOXAPARIN 60 MG/0.6 ML SYR SC SCH (19:58)
[2018-12-13] MEDS: SENNOSIDES/DOCUSATE SODIUM TAB PO SCH (19:58)
--- NOTE | 2018-12-13 19:59 | HOSPPROG ---
Hospitalist Progress Note Assessment/Plan: 83 yo F with PMH that includes anxiety and depression, chronic diarrhea and recent HSREYA s/p fall and fracture presenting from [facility] where she has been recovering from surgery and dealing with constipation s/p syncopal event on the toilet complicated by concerns for possible arrest and CPR performed at SNF, found to have small PE on w/u here # syncope: all in all suspect this was a vagal episode given circumstances, she did have a recent echo several weeks ago without significant valvular disease or other findings other than diastolic dysfunction, will monitor on tele, trend troponin. Could consider dc with heart monitor given recent fracture that was related to a near syncopal event last month. # ? cardiac arrest: patient did undergo 1-3 minutes of CPR at [facility] which was only stopped when patient was noted to be awake and requesting them to stop pushing on her chest, unclear if she was truly pulseless, as above, monitoring on tele # PE: solitary subsegmental PE in RLL noted on CTA, personally reviewed. She has been on ppx lovenox since her SHREYA it should be noted, transitioned to treatment dose. Will need to discuss outpatient management options in am, unable to currently due to anxiety as next # anxiety/depression: as on prior admission patient extremely anxious, history limited by her anxiety, continue her op medications, hopeful that this decreases as she is further from the presenting events # elevated troponin: in the setting of CPR and presumably due to same, has already been trending down # hypothyroid: TSH of 63 with normal T4 but low T3, she is not currently on thyroid supplementation by her med list, will start at 100mcg daily, will need f /u TFT in 4 weeks # chronic diarrhea: currently has been constipated, will continue usual care # observation status # FC--have been unable to discuss with her on this and prior admission # Patient new to my care. Old records reviewed and summarized as above. Care plan reviewed with NGOC Isaacs and ER doctor, please see separate H&P for further details. Objective: Vital Signs Temp Pulse Resp BP Pulse Ox 36.5 C 86 20 117/75 95 12/13/18 12:49 12/13/18 19:03 12/13/18 19:03 12/13/18 15:48 12/13/18 19:03 12/12/18 12/13/18 12/14/18 05:59 05:59 05:59 Intake Total 120 Balance 120 ICD10 Worksheet Patient Problems: Problems Problem Status Onset Abrasion Acute Femoral neck fracture Acute
[2018-12-14] MEDS: LEVOTHYROXINE 100 MCG TAB PO SCH (06:11)
--- NOTE | 2018-12-14 08:18 | HOSPPROG ---
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
[2018-12-14] MEDS: busPIRone 5 MG TAB PO SCH ×2 (09:07→21:13)
[2018-12-14] MEDS: ENOXAPARIN 60 MG/0.6 ML SYR SC SCH ×2 (09:08→21:17)
[2018-12-14] MEDS: SENNOSIDES/DOCUSATE SODIUM TAB PO SCH (09:14)
[2018-12-14 09:27] LABS: PLATELET COUNT 456 10^3/uL (150-400)
--- NOTE | 2018-12-14 10:38 | WOCRNPDOC ---
WOCRN Advanced Assessment Note - Skin Integrity Problem, Advanced Assess Left Sacrum Dressing Type: Mepilex Border Dressing Description: Clean/Dry, Intact Integumentary Issue Intervention: Dressing Changed Wound Bed Color: [place], Purple, Red Site Measurement - Head-to-Toe Length X Width X Depth (cm): 1.6x2x0 Pressure Injury Stage: Deep Tissue Injury (DTI) Pressure Injury Present on Admit: Yes Skin Integrity Problem Comment: Small area of burgundy tissue indicating DTI under healed pressure injury. Patient denies discomfort to area. Amrita ROSA in room for care. KISHAN Beltran aware. Will continue to follow. Right Sacrum Dressing Type: Mepilex Border Wound Bed Constitution: Scab Wound Edges: Attached Site Odor: None Site Measurement - Head-to-Toe Length X Width X Depth (cm): 0.5x0.5xscab Pressure Injury Stage: Unstageable Pressure Injury Present on Admit: Yes Skin Integrity Problem Comment: Small scab spot on patient R sacrum within 2 cm of other wound bed. Located over bony prominence, suspect older pressure injury. Will initiate moist wound healing. Amrita ROSA in room for care. Will continue to follow.
[2018-12-14] MEDS ORDERED: busPIRone 5 MG TAB PO SCH (11:30)
--- NOTE | 2018-12-14 11:40 | HOSPPROG ---
Hospitalist Progress Note Assessment/Plan: DIAGNOSES: * Syncope, vs. question cardiac arrest which seems doubtful given circumstances but received CPR briefly at SNF * Subsegmental pulmonary emboli acute despite low-dose Lovenox, hip fx is provoking episode * Recent right femoral neck fracture, which was triggered by a near syncopal spell; doing well w rehab but slow * Severe hypothyroidism TSH 64 with low free T3 (symptomatic w fatigue and constipation) * Chronic IBS/diarrhea in past, now with some constipation likely caused by thyroid, pain medicines and immobility of her hip fracture episode * Severe protein calorie malnutrition, BMI <16, low albumin obvious changes on exam * Osteoporosis with recent hip fracture, not on anti resorptive therapy * Post hemorrhagic anemia due to her recent hip fracture and surgery * Chronic anxiety disorder PLANS: * Continue enoxaparin at present, consider switch to Eliquis tonight * Continue front desk monitor 24 more hours w question of card arrest * continue increased levothyroxine dose, needs close f/u of symptoms and repeat lab * nutrition supplements will be added * stop current laxatives, use prn miralax, anticipate const will resolve w/ thryoid replacement * At this time holding [place] and Elavil at present * Check vitamin-D levels, add vitamin D and calcium supplements and should be assessed in the outpatient setting for anti resorptive therapy Seen by me today on multidisciplinary rounds as well as hospitalist rounds SUBJECTIVE: feels very weak overall but no other acute sxs' no palps, CP or CHF sxs no fever sxs OBJECTIVE Vitals reviewed: all stable w/o fever so far 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, my review: all sinus so far Exam: alert oriented skin warm dry color a bit pale resps not labored lungs clear BSs heart regular abd soft nondistended nontender, bowel sounds present limbs warm, no edema iv site ok Lab data: Troponins all normal since the 1st ER sample Free T3 is low Unremarkable complete metabolic panel Hemoglobin a bit lower at 9.7 Objective: Vital Signs Temp Pulse Resp BP Pulse Ox 36.6 C 85 16 114/63 94 12/14/18 11:11 12/14/18 11:11 12/14/18 11:11 12/14/18 11:11 12/14/18 11:11 Laboratory Results 12/14/18 08:34 12/14/18 08:34 12/13/18 12/14/18 12/15/18 06:59 06:59 06:59 Intake Total 120 Balance 120 - Time Spent With Patient Time Spent with Patient: greater than 35 minutes Time Spent with Patient: Greater than 35 minutes spent on this patients care, greater than 50% of time spent counseling, educating, and coordinating care regarding the above mentioned plan. ICD10 Worksheet Patient Problems: Problems Problem Status Onset Abrasion Acute Femoral neck fracture Acute
--- NOTE | 2018-12-14 14:28 | PDMN ---
Medical Necessity Medical necessity: MCG: M290 PE: recent sgy with syncope and poss cardiac arrest: - 83 yo F with syncopal episode with LOC and questionable cardiac arrest - pt had R hip hemiarthroplasty couple weeks ago PT noted to have sm. PE in RLL, with trace effusion and L basilar atelectasis. D dimer elevated, status changed to INPT 12/14/18 for ongoing med nec- further monitoring, eval needed > 2 MN>
--- NOTE | 2018-12-14 14:56 | ASMTCMCOM ---
CM Note CM Note Notes: 12/14/2018 Case Management Note Discussed pt during rounds this morning. Pt admitted after an episode of syncope at [facility]. Abdifatah onsite from [facility]. Faxed updates via [employer]. Awaiting PT and OT evals for new authorization with insurance for return to SNF rehab. Case Management d/c poc: [facility] pending authorization from insurance. Case Management to follow. Date Signed: 12/14/2018 02:56 PM Electronically Signed By:Magali Contreras RN
[2018-12-14] MEDS: LATANOPROST 0.005% 2.5 ML OPHT DROPS EACHEYE SCH (21:10)
[2018-12-14] MEDS: MIRTAZAPINE 15 MG TAB PO SCH (21:13)
[2018-12-14] MEDS: GABAPENTIN 100 MG CAP PO SCH (21:13)
[2018-12-14] MEDS: AMITRIPTYLINE HCL 10 MG TAB PO SCH (21:14)
[2018-12-15] MEDS ORDERED: NS 500 ML IV ONE (01:30)
[2018-12-15] MEDS: LEVOTHYROXINE 100 MCG TAB PO SCH (05:27)
[2018-12-15] MEDS ORDERED: CHOLECALCIFEROL VIT D3 2,000 UNITS TAB/CAP PO SCH (09:00)
[2018-12-15] MEDS: busPIRone 5 MG TAB PO SCH ×2 (09:00→20:26)
[2018-12-15] MEDS ORDERED: SENNOSIDES/DOCUSATE SODIUM TAB PO SCH (09:00)
[2018-12-15] MEDS: ENOXAPARIN 60 MG/0.6 ML SYR SC SCH ×2 (09:00→20:25)
--- NOTE | 2018-12-15 09:47 | HOSPPROG ---
Hospitalist Progress Note Assessment/Plan: DIAGNOSES: * Syncope * Severe orthostatic hypotension, chronic * Subsegmental pulmonary emboli acute despite low-dose Lovenox, hip fx is provoking episode * Recent right femoral neck fracture, which was triggered by a near syncopal spell; doing well w rehab but slow * Severe hypothyroidism TSH 64 with low free T3 (symptomatic w fatigue and constipation) * Vitamin-D deficiency, severe (new diagnosis at this time) * Chronic IBS/diarrhea in past, now with some constipation likely caused by thyroid, pain medicines and immobility of her hip fracture episode * Severe protein calorie malnutrition, BMI <16, low albumin obvious changes on exam * Osteoporosis with recent hip fracture, not on anti resorptive therapy (newly diagnosis at this time) * Post hemorrhagic anemia due to her recent hip fracture and surgery - will check iron levels at this time make sure that she has sufficient iron stores, replace if needed * Chronic anxiety disorder PLANS: * Will change to Eliquis at this time * Continue cardiac rehab nurse 24 more hours w question of card arrest * Will give further IV fluids and start my to drain and retest orthostatics * Paul stockings, increase salt intake recommended to patient * continue increased levothyroxine dose, needs close f/u of symptoms and repeat lab * nutrition supplements will be added * Increased vitamin-D dose Seen by me today on multidisciplinary rounds as well as hospitalist rounds She remains very high fall risk, will need to trying get her orthostasis corrected with above measures, continue inpatient care at this time SUBJECTIVE: feels very weak overall but no other acute sxs' no palps, CP or CHF sxs no fever sxs OBJECTIVE Vitals reviewed: all stable w/o fever so far 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, 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: all sinus so far Exam: alert oriented skin warm dry color a bit pale resps not labored lungs clear BSs heart regular abd soft nondistended nontender, bowel sounds present limbs warm, no edema iv site ok Lab data: Vitamin-D level undetectable Objective: Vital Signs Temp Pulse Resp BP Pulse Ox 36.8 C 82 10 L 142/79 H 95 12/15/18 07:09 12/15/18 07:09 12/15/18 07:09 12/15/18 07:09 12/15/18 07:09 12/14/18 12/15/18 12/16/18 06:59 06:59 06:59 Intake Total 300 Output Total 600 Balance -300 - Time Spent With Patient Time Spent with Patient: greater than 35 minutes Time Spent with Patient: Greater than 35 minutes spent on this patients care, greater than 50% of time spent counseling, educating, and coordinating care regarding the above mentioned plan. ICD10 Worksheet Patient Problems: Problems Problem Status Onset Abrasion Acute Femoral neck fracture Acute
[2018-12-15] MEDS: MIDODRINE HCL 5 MG TAB PO SCH ×3 (10:20→15:49)
[2018-12-15] MEDS: NS 1,000 ML IV SCH ×2 (10:20→17:11)
--- NOTE | 2018-12-15 14:26 | ASMTCMCOM ---
CM Note CM Note Notes: 12/15/2018 Case Management Note Discussed pt during rounds. Faxed updates to [facility]. Requested auth. Discussed with Abdifatah from [facility] when onsite. Case Management d/c poc: return to [facility] pending auth from insurance. Case Management to follow. Date Signed: 12/15/2018 02:26 PM Electronically Signed By:Magali Contreras RN
[2018-12-15] MEDS: CALCIUM CARBONATE 500 MG CHEWABLE TAB PO SCH ×2 (15:48→22:56)
[2018-12-15] MEDS: LATANOPROST 0.005% 2.5 ML OPHT DROPS EACHEYE SCH (20:25)
[2018-12-15] MEDS: GABAPENTIN 100 MG CAP PO SCH (20:25)
[2018-12-15] MEDS: AMITRIPTYLINE HCL 10 MG TAB PO SCH (20:27)
[2018-12-15] MEDS: MIRTAZAPINE 15 MG TAB PO SCH (20:27)
[2018-12-16] MEDS: LEVOTHYROXINE 100 MCG TAB PO SCH (06:20)
[2018-12-16] MEDS: NS 1,000 ML IV SCH (06:23)
[2018-12-16] MEDS: ENOXAPARIN 60 MG/0.6 ML SYR SC SCH (08:45)
[2018-12-16] MEDS: busPIRone 5 MG TAB PO SCH (08:46)
[2018-12-16] MEDS: CALCIUM CARBONATE 500 MG CHEWABLE TAB PO SCH (08:46)
[2018-12-16] MEDS: MIDODRINE HCL 5 MG TAB PO SCH ×3 (08:46→16:10)
[2018-12-16] MEDS ORDERED: CHOLECALCIFEROL VIT D3 2,000 UNITS TAB/CAP PO SCH (09:00)
[2018-12-16] MEDS: ACETAMINOPHEN 325 MG TAB PO PRN ×2 (09:05→15:14)
--- NOTE | 2018-12-16 11:29 | PDDCSUM ---
Discharge Summary Discharge Summary: DISCHARGE DIAGNOSES: * Acute syncope * Orthostatic hypotension, acute worsening of chronic problem newly diagnosed at this time * Acute subsegmental pulmonary embolism the right lung, newly diagnosed at this time * Undertreated hypothyroidism with newly increased dose of replacement hormone * Severe vitamin-D deficiency, new diagnosis at this time * Gait instability and high fall risk due to weakness, orthostasis * Protein calorie malnutrition, severe * Osteoporosis with recent hip fracture * Chronic anxiety disorder on treatment and stable * Anemia due to recent hip fracture and surgery HOSPITAL COURSE SUMMARY: This patient who had been at the hospital recently was at a [place] [facility] facility recovering from hip fracture when she had a syncopal spell. The patient did receive some chest compressions there but that was never clarify occasion that she actually was found to be pulseless. The patient also awakened during the chest compressions to full consciousness quite abruptly. Upon arrival here she is found to be markedly orthostatic both by numbers and symptoms. On questioning the patient admits that she does have significant chronic orthostatic symptoms. In addition she was found to have a small right subsegmental pulmonary embolism without evidence of acute DVT. Also the patient is taking a low dose of levothyroxine chronically for hypothyroidism at 50 mcg but was found have TSH in the 60s with low free T3 at this time. Is felt that her syncopal spells multifactorial but that her chronic orthostasis has a significant impact on this. She had no further syncopal spells here and there is no cardiac arrhythmia on several days of cardiac monitoring. She was given adequate hydration intravenously to usually me a and there is no improvement in her orthostatic numbers are symptoms with that. My to drain at 5 mg three times daily was added and this led to a significant improvement in the numbers and symptoms. Additionally her Synthroid dose is increased to 100 mcg daily. At this point she is stable for discharge from hospital but will need ongoing rehabilitation and is transferred back to the [place] [facility] for that. Additionally as the patient has a hip fracture she has osteoporosis by definition. She was unaware of having vitamin-D testing and was not on any vitamin-D supplements or anti resorptive therapy. Vitamin D was tested here and was undetectable. She was therefore started on high-dose vitamins D supplementation as well as calcium supplements. She is recommended to work with her primary care physician or a bone specialist in the near future for further assessment of osteoporosis and consideration of what would be optimal anti resorptive therapy for her. PENDING TEST RESULTS: None MEDICATION CHANGES: Addition midodrine 5 mg three times daily Addition of vitamin D 5000 units daily Addition of calcium carbonate Increase in her levothyroxine from 50 mcg to 100 mcg daily - this will need follow-up lab testing Addition of Eliquis 5 mg twice daily for pulmonary embolism / her low-dose Lovenox has been discontinued FOLLOW-UP PLAN: She is transferred back to [place] [facility] at this time to continue her ongoing rehabilitation after recent hip fracture and surgery Greater than 35 minutes bedside and care coordination time today
--- NOTE | 2018-12-16 11:31 | ASMTLACE ---
RICHARD Length of stay for Answers: 3 days current admission Acuity / Level of Answers: Yes Care: Did the patient have an inpatient admission? Comorbidities - select Answers: Coronary Artery Disease all that apply Previous myocardial infarction Other Notes: Hypothyroid # of Emergency department Answers: 1-2 visits in the last 6 months Social determinants Answers: Mental health diagnosis (anxiety, depression, pers onality disorders, etc.) Score: 14 Date Signed: 12/16/2018 11:30 AM Electronically Signed By:Laurie Gurrola RN
--- NOTE | 2018-12-16 11:32 | PDIAF ---
- Diagnosis Diagnosis: Syncope, severe orthostasis, severe vit D deficiency Code Status: Full Code - Medication Management Discharge Medications: electronically signed and located in the Home Medication List. PICC Care - Routine: N/A - Orders Services needed: Registered Nurse, Certified Flight Deck Officer, Master Dope Worker , Physical Therapy, Occupational Therapy Diet Recommendation: no restrictions on diet Diet Texture: Regular Texture Diet Paul Stockings Discontinue Date: Continue indefinitely when up due to chronic orthostasis Activity/Weight Bearing Restrictions: Fall risk precautions Additional Instructions: Wound care: Bedsore (Pressure injury) care: You have a Deep Tissue pressure injury (also known as a bedsore) on the very lowest part of your back (the sacrum.) To help heal this wound and avoid further injury please do the followin. Reposition yourself frequently, at least every 15 minutes when sitting. Try to stand for at least 3 min every hour so that the tissues fully reperfuse with blood. We recommend sitting on an air cushion. Please never use a doughnut. 2. When youre in bed, try to rest on your side as much as possible, and change position every two hours (for example, turn or tilt from your right side toward your left).~ If you sleep on a sleep number or medical bed, keep the head of the bed below 30 degrees and keep all pressure off your low back for at least 5 minutes at least every two hours.~ 3. As needed, you may use Calazime, dimethicone moisture barrier cream, or any inje-dar-olgygbt diaper rash cream to help prevent or treat a moisture- related rash to your bottom area and buttocks. Please contact [facility] outpatient [facility] for an appointment, at , If your wounds re/open or dont improve, or if you have any further questions or concerns. Froylan Avendaño RN Team - Labs/Radiology Other Lab Name, Date and Time: TSH on February 03 either at nursing facility or with primary care - Follow Up Care Current Providers and Referrals: NONE *PRIMARY CARE P,. [Primary Care Provider] - As per Instructions
--- NOTE | 2018-12-16 12:11 | ASMTDCNOTE ---
Case Management Discharge Discharge Order Complete? Answers: Yes Patient to Obtain Answers: Other Notes: [facility] Medications Transportation Arranged Answers: Other Notes: Nicholls per [facility] Transport will Pick (Date 12/16/2018 03:30 PM & Time) Faxed Final Orders Answers: Yes Discharge Comments Notes: Patient discharged to [facility]. Orders sent. Transport set up by Abdifatah at [facility]. KISHAN Souza to call report. Date Signed: 12/16/2018 12:11 PM Electronically Signed By:Laurie Gurrola RN
[2018-12-16 13:43] VITALS: BP 125/82
[2018-12-16] MEDS ORDERED: APIXABAN 5 MG TAB PO SCH (20:00)
--- NOTE | 2018-12-17 10:41 | ASDISCHSUM ---
Discharge Information Plan Status:SNF Medically Cleared to Leave: Discharge Date:12/16/2018 04:13 PM CM D/C Disposition: ADT D/C Disposition:Nursing Home Facility Projected Discharge Date:12/15/2018 11:00 AM Transportation at D/C: Discharge Delay Reason: Follow-Up Date:12/15/2018 11:00 AM Discharge Slot: Final Diagnosis: Placement Information Referral Type:*Group Home/SNF Referral ID:[id number] Provider Name:[facility] Dneia/Jenae [facility] Address 1:[address] Address 2: City:[place] Selection Factors: State:[place] Patient Contact Information Contact Name:CARLOS Relationship:Friend Address: Work Phone: City: [facility] Phone: [facility] Code: Email: Financial Information Financial Class:Medicare Advantage Plans Primary Plan Desc:[employer] MEDICARE ADV Primary Plan Number:[id number] Secondary Plan Desc: Secondary Plan Number: Assessment Information LACE LACE Length of stay for Answers: 3 days current admission Acuity / Level of Answers: Yes Care: Did the patient have an inpatient admission? Comorbidities - select Answers: Coronary Artery Disease all that apply Previous myocardial infarction Other Notes: Hypothyroid # of Emergency department Answers: 1-2 visits in the last 6 months Social determinants Answers: Mental health diagnosis (anxiety, depression, pers onality disorders, etc.) Score: 14 Date Signed: 12/16/2018 11:30 AM Electronically Signed By:Laurie Gurrola RN [facility] CM Progress Note CM Note CM Note Notes: 12/14/2018 Case Management Note Discussed pt during rounds this morning. Pt admitted after an episode of syncope at [facility]. Abdifatah onsite from [facility]. Faxed updates via [employer]. Awaiting PT and OT evals for new authorization with insurance for return to [facility] rehab. Case Management d/c poc: [facility] pending authorization from insurance. Case Management to follow. Date Signed: 12/14/2018 02:56 PM Electronically Signed By:Magali Contreras RN [facility] CM Progress Note CM Note CM Note Notes: 12/15/2018 Case Management Note Discussed pt during rounds. Faxed updates to [facility]. Requested auth. Discussed with Abdifatah from [facility] when onsite. Case Management d/c poc: return to [facility] pending auth from insurance. Case Management to follow. Date Signed: 12/15/2018 02:26 PM Electronically Signed By:Magali Contreras RN Case Management Discharge Plan Note Case Management Discharge Discharge Order Complete? Answers: Yes Patient to Obtain Answers: Other Notes: [facility] Medications Transportation Arranged Answers: Other Notes: Denia Barker per [facility] Transport will Pick (Date 12/16/2018 03:30 PM & Time) Faxed Final Orders Answers: Yes Discharge Comments Notes: Patient discharged to [facility]. Orders sent. Transport set up by Abdifatah at [facility]. KISHAN Souza to call report. Date Signed: 12/16/2018 12:11 PM Electronically Signed By:Laurie Gurrola RN Intervention Information
== END 2018-12-16 16:13 | DRG 175 ==
LOC: EDUNIT# → F2W 16:29 → OBSVTOIN 12-14 12:50
PROVIDERS: ADMIT Internal Medicine; ATTEND Internal Medicine
DX: I26.99 Other pulmonary embolism without acute cor pulmonale (principal); E43 Unspecified severe protein-calorie malnutrition; I95.1 Orthostatic hypotension; E03.9 Hypothyroidism, unspecified; E55.9 Vitamin D deficiency, unspecified; R26.9 Unspecified abnormalities of gait and mobility; M81.0 Age-related osteoporosis without current pathological fracture; F41.9 Anxiety disorder, unspecified; D64.9 Anemia, unspecified; I25.10 Atherosclerotic heart disease of native coronary artery without angina pectoris; K59.00 Constipation, unspecified; Z96.641 Presence of right artificial hip joint; I25.2 Old myocardial infarction
CPT/HCPCS: 82024-90; 84480-90; 84481-90; 84484-ER; 97110-GP; 97116-GP; 97162-GP; 97165-GO; 97530-GO; 97530-GP; 97535-GO; G0378; J1650; Q9967

== ENCOUNTER 2019-01-14 16:32 | Inpatient (IN) | payer OTHER ==
--- NOTE | 2019-01-14 16:48 | EDPHY ---
H & P Time Seen by Provider: 01/14/19 16:32 HPI/ROS: CHIEF COMPLAINT: Cardiac alert HISTORY OF PRESENT ILLNESS: EMS brought the patient in emergently is a cardiac alert. She is unable to give me any history. The caregiver Poornima arrived at 4:45 p.m. And was able to tell me that the patient was just discharged from rehab to home and she met her for the 1st time today at about 10 min to 2. The patient was at that time conversant she was able to make her some scrambled eggs. After helping her to the bathroom about an hour later the patient became much less responsive and weaker. EMS was called and brought the emergency department. On arrival the patient is making some words and sounds but can't answer questions. Caregiver denies any fall or trauma at the house. Further history and review of systems unable as the patient is altered on arrival. PAST MEDICAL HISTORY: Past medical history obtained from discharge summary dated 12/14/2018 includes acute pulmonary embolism, hypothyroid, gait instability and high fall risk, chronic anxiety disorder, anemia with recent hip fracture and surgery. Social history: Recently discharged from rehab, caregiver Poornima here giving most of the history. 36.9, very thin General Appearance: Patient is alert and opens eyes spontaneously looks around but can't answer questions. Eyes: Pupils reactive. ENT, Mouth: Normal mucous membranes. Respiratory: Normal respiratory effort, breath sounds equal, lungs are clear to auscultation. Cardiovascular: Regular rate and rhythm. Gastrointestinal: Abdomen is soft and non tender. Neurological: Patient is alert but will not really answer questions and moves all 4 extremities spontaneously. Skin: Warm and dry, no rashes. Musculoskeletal: No peripheral edema. Psychiatric: Unable due to altered mental status. Emergency Department course/MDM: 12-lead EKG interpreted by me; official reading is in computer system. 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 No acute ST elevation. Plan head CT labs to include protime PTT chemistry and glucose. Chest x-ray. Acute encephalopathy but is not a stroke alert because the patient is on Eliquis and is anticoagulated. Difficult to obtain O2 sat, patient placed on supplemental oxygen. Right femoral vein direct blood draw by myself as nurses able to get IV access but unable to draw blood. 1845: The patient calmer after returning from CT, received IV benzodiazepines for sedation for imaging. Admission for further evaluation. At this point I think it is unlikely she has intracranial bleed, no evidence for new pulmonary embolism or acute coronary syndrome. DIVING JUDGE infection considered I think it is less likely. Smoking Status: Never smoked Constitutional: Initial Vital Signs Temperature (C) 36.9 C 01/14/19 16:38 Heart Rate 102 H 01/14/19 16:38 Respiratory Rate 24 H 01/14/19 16:38 Blood Pressure 155/111 H 01/14/19 16:38 O2 Sat (%) 100 01/14/19 16:38 O2 Delivery Mode Nasal Cannula O2 (L/minute) 4 Allergies/Adverse Reactions: bupropion HCl [From Wellbutrin] Allergy (Unknown, Verified 12/13/18 12:51) Other-Enter Comments Penicillins Allergy (Verified 12/13/18 12:51) Unknown Home Medications: Medication Instructions Recorded Mirtazapine [Remeron] 15 mg PO HS 05/20/14 Amitriptyline HCl [Elavil 10 mg 10 mg PO HS 11/27/18 (*)] Gabapentin [Neurontin 100 MG (*)] 100 mg PO HS 11/27/18 Latanoprost 0.005% [Xalatan 0.005% 1 drops EACHEYE HS 12/14/18 (*)] busPIRone [Buspar (*)] 2.5 mg PO DAILY@1400 12/14/18 Acetaminophen [Tylenol 325mg (*)] 650 mg PO Q4HRS PRN tab 12/16/18 Calcium Carbonate [Tums 500MG (*)] 500 mg PO TID #0 tab.chew 12/16/18 Cholecalciferol Vit D3 [Vitamin D3 5,000 units PO DAILY #0 each 12/16/18 2000 units tab (OTC)] Levothyroxine [Synthroid 100 mcg 100 mcg PO DAILY AT 6AM tab 12/16/18 (*)] Apixaban [Eliquis] 2.5 mg PO BID 01/14/19 Midodrine HCl [Proamatine/Midodrin] 7.5 mg PO TID@0800,1200,1600 01/14/19 Polyethylene Glycol 3350 [Miralax 17 gm PO DAILY 01/14/19 17 gm (*)] busPIRone [Buspar (*)] 2.5 mg PO DAILY PRN 01/14/19 Medical Decision Making - Diagnostics Imaging Results: Imaging Impressions Chest X-Ray 01/14/19 16:48 Impression: No evidence for acute cardiopulmonary abnormality. Head CT 01/14/19 16:48 Impression: Periarticular and deep hemispheric white matter change is visualized , which is nonspecific and can be seen with small vessel ischemic disease. No evidence for acute intracranial abnormality. Results called and discussed with Abran Bravo MD on January 14, 2019 at 1818 hours. Chest/Thorax CTA 01/14/19 16:58 Impression: 1. Small subsegmental pulmonary embolus is again seen at the right lower lobe at the lung base and possibly a couple other smaller ones, although limited with motion artifact. No segmental pulmonary embolus or pulmonary embolus in the main pulmonary arteries. 2. Other stable chronic findings, as above. Results called and discussed with Abran Bravo MD on January 14, 2019 at 1828 hours. Imaging: Discussed imaging studies w/ call specialist Radiologist Consult/Admit Bed Type: [place] [id number] Critical Care Time: Critical care time spent by me, Dr. Bravo, exclusively with the care of this patient was 30 minutes, exclusive of PA or [employer] time and exclusive of separate procedures. The organ system at risk was neurologic and I ordered serial exams multiple diagnostics, supportive care and IV sedative medication to stabilize the patient and prevent worsening of the patient's condition. - Data Points Laboratory Results: Laboratory Results 01/14/19 17:00 01/14/19 17:00 01/14/19 01/14/19 01/14/19 17:07 17:00 17:00 WBC RBC Hgb POC Hgb 12.6 gm/dL gm/dL (12.6-16.3) Hct POC Hct 37 % L % (38-47) MCV MCH MCHC RDW Plt Count MPV Neut % (Auto) Lymph % (Auto) [place] % (Auto) Eos % (Auto) Baso % (Auto) Nucleat RBC Rel Count Absolute Neuts (auto) Absolute Lymphs (auto) Absolute Monos (auto) Absolute Eos (auto) Absolute Basos (auto) Absolute Nucleated RBC Immature Gran % Immature Gran # PT 14.1 SEC SEC (12.0-15.0) INR 1.14 (0.83-1.16) APTT 23.5 SEC SEC (23.0-38.0) POC Sodium 136 mEq/L mEq/L (135-145) Sodium 134 mEq/L L mEq/L (135-145) POC Potassium 3.9 mEq/L mEq/L (3.3-5.0) Potassium 4.2 mEq/L mEq/L (3.5-5.2) POC Chloride 98 mEq/L mEq/L (97-110) Chloride 99 mEq/L mEq/L (97-110) Carbon Dioxide 21 mEq/l L mEq/l (22-31) POC Total CO2 23 mEq/L mEq/L (22-31) Anion Gap 14 mEq/L mEq/L (6-14) POC BUN 17 mg/dL mg/dL (7-23) BUN 18 mg/dL mg/dL (7-23) Creatinine 1.0 mg/dL mg/dL (0.6-1.0) POC Creatinine 1.0 mg/dL mg/dL (0.6-1.0) Estimated GFR 53 Glucose 198 mg/dL H mg/dL (70-100) POC Glucose 196 mg/dL H mg/dL (70-100) Calcium 9.4 mg/dL mg/dL (8.5-10.4) POC Troponin I 01/14/19 01/14/19 01/14/19 17:00 16:58 16:56 WBC 6.02 10^3/uL 10^3/uL (3.80-9.50) RBC 3.57 10^6/uL L 10^6/uL (4.18-5.33) Hgb 11.8 g/dL L g/dL (12.6-16.3) POC Hgb 12.2 gm/dL L gm/dL (12.6-16.3) Hct 35.7 % L % (38.0-47.0) POC Hct 36 % L % (38-47) MCV 100.0 fL H fL (81.5-99.8) MCH 33.1 pg pg (27.9-34.1) MCHC 33.1 g/dL g/dL (32.4-36.7) RDW 15.3 % H % (11.5-15.2) Plt Count 274 10^3/uL 10^3/uL (150-400) MPV 9.2 fL fL (8.7-11.7) Neut % (Auto) 71.8 % % (39.3-74.2) Lymph % (Auto) 18.9 % % (15.0-45.0) [place] % (Auto) 6.8 % % (4.5-13.0) Eos % (Auto) 1.5 % % (0.6-7.6) Baso % (Auto) 0.5 % % (0.3-1.7) Nucleat RBC Rel Count 0.0 % % (0.0-0.2) Absolute Neuts (auto) 4.32 10^3/uL 10^3/uL (1.70-6.50) Absolute Lymphs (auto) 1.14 10^3/uL 10^3/uL (1.00-3.00) Absolute Monos (auto) 0.41 10^3/uL 10^3/uL (0.30-0.80) Absolute Eos (auto) 0.09 10^3/uL 10^3/uL (0.03-0.40) Absolute Basos (auto) 0.03 10^3/uL 10^3/uL (0.02-0.10) Absolute Nucleated RBC 0.00 10^3/uL 10^3/uL (0-0.01) Immature Gran % 0.5 % % (0.0-1.1) Immature Gran # 0.03 10^3/uL 10^3/uL (0.00-0.10) PT INR APTT POC Sodium 136 mEq/L mEq/L (135-145) Sodium POC Potassium 5.2 mEq/L H mEq/L (3.3-5.0) Potassium POC Chloride 102 mEq/L mEq/L (97-110) Chloride Carbon Dioxide POC Total CO2 21 mEq/L L mEq/L (22-31) Anion Gap POC BUN 21 mg/dL mg/dL (7-23) BUN Creatinine POC Creatinine 1.0 mg/dL mg/dL (0.6-1.0) Estimated GFR Glucose POC Glucose 211 mg/dL H mg/dL (70-100) Calcium POC Troponin I 0.00 ng/mL ng/mL (0.00-0.08) Medications Given: Discontinued Medications Midazolam HCl (Versed) 1 mg IVP EDNOW ONE Stop: 01/14/19 17:21 Last Admin: 01/14/19 17:31 Dose: 1 mg Ondansetron HCl (Zofran) 4 mg IVP ONCE ONE Stop: 01/14/19 19:07 Last Admin: 01/14/19 18:05 Dose: 4 mg Point of Care Test Results: Chemistry 01/14/19 01/14/19 01/14/19 17:07 16:58 16:56 POC Sodium 136 mEq/L mEq/L 136 mEq/L mEq/L (135-145) (135-145) POC Potassium 3.9 mEq/L mEq/L 5.2 mEq/L H mEq/L (3.3-5.0) (3.3-5.0) POC Chloride 98 mEq/L mEq/L 102 mEq/L mEq/L (97-110) (97-110) POC Total CO2 23 mEq/L mEq/L 21 mEq/L L mEq/L (22-31) (22-31) POC BUN 17 mg/dL mg/dL 21 mg/dL mg/dL (7-23) (7-23) POC Creatinine 1.0 mg/dL mg/dL 1.0 mg/dL mg/dL (0.6-1.0) (0.6-1.0) POC Glucose 196 mg/dL H mg/dL 211 mg/dL H mg/dL (70-100) (70-100) POC Troponin I 0.00 ng/mL ng/mL (0.00-0.08) ISTAT H&H 01/14/19 01/14/19 17:07 16:58 POC Hgb 12.6 gm/dL gm/dL 12.2 gm/dL L gm/dL (12.6-16.3) (12.6-16.3) POC Hct 37 % L % 36 % L % (38-47) (38-47) Departure - Departure Disposition: [facility] Acute Clinical Impression: Encephalopathy acute Condition: Serious
[2019-01-14] MEDS ORDERED: ONDANSETRON 4 MG/2 ML VIAL ONE (17:09)
[2019-01-14] MEDS ORDERED: IOPAMIDOL (ISOVUE 370) 100 ML BTL IV ONE (17:15)
[2019-01-14 17:16] LABS: PLATELET COUNT 274 10^3/uL (150-400)
[2019-01-14] MEDS ORDERED: MIDAZOLAM 2 MG/2 ML VIAL IVP ONE (17:20)
[2019-01-14 17:24] LABS: INR 1.14 (0.83-1.16); PROTIME(PATIENT) 14.1 SEC (12.0-15.0)
--- NOTE | 2019-01-14 17:29 | CPEKG ---
Test Reason : OPEN Blood Pressure : / mmHG Vent. Rate : 102 BPM Atrial Rate : 102 BPM P-R Int : 229 ms QRS Dur : 081 ms QT Int : 341 ms P-R-T Axes : 062 -73 082 degrees QTc Int : 445 ms Sinus tachycardia Prolonged [place] interval Right atrial enlargement Inferior infarct, old Consider anterior infarct Lateral leads are also involved Confirmed by Abran Bravo ([id number]) on 01/14/2019 5:29:23 PM Referred By: Abran Brvao Confirmed By:Abran Bravo
[2019-01-14] MEDS ORDERED: ONDANSETRON 4 MG/2 ML VIAL IVP ONE (19:06)
[2019-01-14] MEDS ORDERED: oxyCODONE IR 5 MG TAB PO PRN (19:11)
[2019-01-14] MEDS ORDERED: HYDROCODONE/APAP 5/325 TAB PO PRN (19:11)
[2019-01-14] MEDS ORDERED: PROMETHAZINE HCL 25 MG/ML INJ IVP PRN (19:11)
[2019-01-14] MEDS ORDERED: ACETAMINOPHEN 325 MG TAB PO PRN (19:11)
[2019-01-14] MEDS ORDERED: HYDROmorphONE/DILAUDID 1 MG/ML INJ IVP PRN (19:11)
[2019-01-14] MEDS ORDERED: ONDANSETRON DISINTEGRATING 4 MG TAB PO PRN (19:11)
[2019-01-14] MEDS ORDERED: ONDANSETRON 4 MG/2 ML VIAL IVP PRN (19:11)
[2019-01-14] MEDS ORDERED: busPIRone 5 MG TAB PO PRN (19:13)
[2019-01-14] MEDS ORDERED: NS 1,000 ML IV SCH (19:15)
--- NOTE | 2019-01-14 20:57 | PDGENHP ---
History and Physical - Chief Complaint confusion - History of Present Illness Patient is an 83 yo F with hx of anxiety, depression, and relatively recent hip fracture s/p SHREYA in November who is presenting from home with a caregiver who is reporting that Linda became acutely confused today. Patient had been in rehab until very recently, and today was meeting with her caregiver who states that earlier in the day she had been alert and conversant, even able to scramble eggs , but then became acutely confused and no longer verbally interactive. At the time of my evaluation patient is awake and alert but remains unable to interact verbally. Per caregiver, as far as she knows, prior to this patient was improving from her last hospital stay and had no s/s of infection or other acute issues however caregiver was seeing her for the first time today since dc from snf. History Information - Allergies/Home Medication List Allergies/Adverse Reactions: bupropion HCl [From Wellbutrin] Allergy (Unknown, Verified 12/13/18 12:51) Other-Enter Comments Penicillins Allergy (Verified 12/13/18 12:51) Unknown Home Medications: Mirtazapine [Remeron] 15 mg PO HS 05/20/14 [Last Taken 11/26/18] Amitriptyline HCl [Elavil 10 mg (*)] 10 mg PO HS 11/27/18 [Last Taken 11/26/18] Gabapentin [Neurontin 100 MG (*)] 100 mg PO HS 11/27/18 [Last Taken 11/26/18] Latanoprost 0.005% [Xalatan 0.005% (*)] 1 drops EACHEYE HS 12/14/18 [Last Taken Unknown] busPIRone [Buspar (*)] 2.5 mg PO DAILY@1400 12/14/18 [Last Taken Unknown] Apixaban [Eliquis] 2.5 mg PO BID 01/14/19 [Last Taken Unknown] Midodrine HCl [Proamatine/Midodrin] 7.5 mg PO TID@0800,1200,1600 01/14/19 [Last Taken Unknown] Polyethylene Glycol 3350 [Miralax 17 gm (*)] 17 gm PO DAILY 01/14/19 [Last Taken Unknown] busPIRone [Buspar (*)] 2.5 mg PO DAILY PRN 01/14/19 [Last Taken Unknown] I have personally reviewed and updated: family history, medical history, social history, surgical history - Past Medical History pulmonary embolism, psychiatric history (depression and anxiety) Additional medical history: hypothyroid. IBS. chronic diarrhea - Surgical History Additional surgical history: tib fib fx with rods placed. right SHREYA - Family History Positive for: cancer (father with prostate, sister with lymphoma) - Social History Smoking Status: Never smoked Alcohol Use: None Drug Use: None Additional social history: lives alone, has home health, recently left rehab Review of Systems Review of Systems: unobtainable 2/2 mental status Physical Exam Physical Exam: Temp Pulse Resp BP Pulse Ox 37.8 C 95 33 H 155/93 H 100 01/14/19 19:49 01/14/19 19:49 01/14/19 19:49 01/14/19 19:49 01/14/19 19:49 O2 (L/minute) 4 Constitutional: chronically ill appearing, cachectic Eyes: PERRL, anicteric sclera Ears, Nose, Mouth, Throat: ears appear normal, dry mucous membranes Cardiovascular: regular rate and rhythym, tachycardia, No edema Respiratory: no respiratory distress, no rales or rhonchi Gastrointestinal: normoactive bowel sounds, soft, non-tender abdomen Genitourinary: no bladder tenderness Skin: warm Musculoskeletal: generalized weakness Neurologic: CN II-XII Intact, No AAOx3 Psychiatric: encephalopathic Lab Data & Imaging Review 01/14/19 17:00 01/14/19 17:00 WBC 6.02 10^3/uL (3.80-9.50) 01/14/19 17:00 RBC 3.57 10^6/uL (4.18-5.33) L 01/14/19 17:00 Hgb 11.8 g/dL (12.6-16.3) L 01/14/19 17:00 POC Hgb 12.6 gm/dL (12.6-16.3) 01/14/19 17:07 Hct 35.7 % (38.0-47.0) L 01/14/19 17:00 POC Hct 37 % (38-47) L 01/14/19 17:07 MCV 100.0 fL (81.5-99.8) H 01/14/19 17:00 MCH 33.1 pg (27.9-34.1) 01/14/19 17:00 MCHC 33.1 g/dL (32.4-36.7) 01/14/19 17:00 RDW 15.3 % (11.5-15.2) H 01/14/19 17:00 Plt Count 274 10^3/uL (150-400) 01/14/19 17:00 MPV 9.2 fL (8.7-11.7) 01/14/19 17:00 Neut % (Auto) 71.8 % (39.3-74.2) 01/14/19 17:00 Lymph % (Auto) 18.9 % (15.0-45.0) 01/14/19 17:00 [place] % (Auto) 6.8 % (4.5-13.0) 01/14/19 17:00 Eos % (Auto) 1.5 % (0.6-7.6) 01/14/19 17:00 Baso % (Auto) 0.5 % (0.3-1.7) 01/14/19 17:00 Nucleat RBC Rel Count 0.0 % (0.0-0.2) 01/14/19 17:00 Absolute Neuts (auto) 4.32 10^3/uL (1.70-6.50) 01/14/19 17:00 Absolute Lymphs (auto) 1.14 10^3/uL (1.00-3.00) 01/14/19 17:00 Absolute Monos (auto) 0.41 10^3/uL (0.30-0.80) 01/14/19 17:00 Absolute Eos (auto) 0.09 10^3/uL (0.03-0.40) 01/14/19 17:00 Absolute Basos (auto) 0.03 10^3/uL (0.02-0.10) 01/14/19 17:00 Absolute Nucleated RBC 0.00 10^3/uL (0-0.01) 01/14/19 17:00 Immature Gran % 0.5 % (0.0-1.1) 01/14/19 17:00 Immature Gran # 0.03 10^3/uL (0.00-0.10) 01/14/19 17:00 PT 14.1 SEC (12.0-15.0) 01/14/19 17:00 INR 1.14 (0.83-1.16) 01/14/19 17:00 APTT 23.5 SEC (23.0-38.0) 01/14/19 17:00 POC Sodium 136 mEq/L (135-145) 01/14/19 17:07 Sodium 134 mEq/L (135-145) L 01/14/19 17:00 POC Potassium 3.9 mEq/L (3.3-5.0) 01/14/19 17:07 Potassium 4.2 mEq/L (3.5-5.2) 01/14/19 17:00 POC Chloride 98 mEq/L (97-110) 01/14/19 17:07 Chloride 99 mEq/L (97-110) 01/14/19 17:00 Carbon Dioxide 21 mEq/l (22-31) L 01/14/19 17:00 POC Total CO2 23 mEq/L (22-31) 01/14/19 17:07 Anion Gap 14 mEq/L (6-14) 01/14/19 17:00 POC BUN 17 mg/dL (7-23) 01/14/19 17:07 BUN 18 mg/dL (7-23) 01/14/19 17:00 Creatinine 1.0 mg/dL (0.6-1.0) 01/14/19 17:00 POC Creatinine 1.0 mg/dL (0.6-1.0) 01/14/19 17:07 Estimated GFR 53 01/14/19 17:00 Glucose 198 mg/dL (70-100) H 01/14/19 17:00 POC Glucose 196 mg/dL (70-100) H 01/14/19 17:07 Calcium 9.4 mg/dL (8.5-10.4) 01/14/19 17:00 POC Troponin I 0.00 ng/mL (0.00-0.08) 01/14/19 16:56 Visualized and Interpreted Chest x-ray results: Yes Chest X-Ray results: no infiltrate Visualized and Interpreted imaging results: Yes Interpretation: head ct: nothing acute. chest CTA: PE prior previously RLL Visualized and Interpreted EKG results: Yes EKG Interpretation: Positive for: normal sinsus rhythm Assessment & Plan Assessment: Encephalopathy acute (Acute) 83 yo F with PMH of anxiety/depression, recently dx PE and recent hip fracture p /w acute encephalopathy concerning for cva # metabolic encephalopathy: with acute change per her caregiver and patient currently with what appears to be expressive and receptive aphasia, not TPA candidate given that she is on AC for PE. Head ct without e/o bleed. Other etiologies considered for global encephalopathy including infection but no evidence for that currently. Head/neck CTA ordered and pending, neuro to consult in am. Monitoring on tele # aphasia: as above, concerning for CVA # hypothyroid: at last visit was profound with very high TSH of 63, will repeat thyroid panel # PE: continued on anticoagulation, on repeat CTA today appears overall stable though per radiology read possibility of new PE not clearly ruled out # severe protein calorie malnutrition: will ask for dietary consult # recent SHREYA: continue pt/ot # anxiety/depression: severe in the past, continue her usual psychiatric medications # orthostatic hypotension: has been severe in the past, on midodrine # IP status, high risk requiring ICU care, an additional 30 min critical care time spent in admission of this patient in review of labs/imaging/chart and coordination with other doctors # FC--no family locally per caregiver and no prior MOST found on records, FC at SNF Patient new to my care. Old records reviewed and summarized as above. Care plan reviewed with ER doctor, further hx obtained from caregiver present at bedside.
[2019-01-14] MEDS: APIXABAN 2.5 MG TAB PO SCH (21:01)
[2019-01-14] MEDS ORDERED: D50W 25 GM/50 ML VIAL IVP PRN (21:22)
[2019-01-14] MEDS ORDERED: HALOPERIDOL LACT 5 MG/ML INJ ONE (22:22)
[2019-01-14] MEDS ORDERED: HALOPERIDOL LACT 5 MG/ML INJ IV ONE (22:45)
[2019-01-15] MEDS ORDERED: LORazepam 2 MG/ML INJ IVP ONE (00:33)
[2019-01-15] MEDS ORDERED: IOPAMIDOL (ISOVUE 370) 100 ML BTL IV ONE (01:07)
[2019-01-15] MEDS: LATANOPROST 0.005% 2.5 ML OPHT DROPS EACHEYE SCH ×2 (02:16→20:08)
[2019-01-15] MEDS: CALCIUM CARBONATE 500 MG CHEWABLE TAB PO SCH ×4 (02:16→21:22)
[2019-01-15 04:58] LABS: PLATELET COUNT 221 10^3/uL (150-400)
[2019-01-15] MEDS ORDERED: LEVOTHYROXINE 100 MCG TAB PO SCH (06:00)
[2019-01-15] MEDS: CHOLECALCIFEROL VIT D3 2,000 UNITS TAB/CAP PO SCH (09:13)
[2019-01-15] MEDS: APIXABAN 2.5 MG TAB PO SCH (09:16)
[2019-01-15] MEDS: MIDODRINE HCL 5 MG TAB PO SCH ×3 (09:16→15:59)
[2019-01-15] MEDS: POLYETHYLENE GLYCOL 3350 17 GM PKT PO SCH (09:18)
[2019-01-15] MEDS: INSULIN LISPRO 100 UNIT/ML SC SCH ×3 (09:19→18:22)
--- NOTE | 2019-01-15 12:17 | HOSPPROG ---
Hospitalist Progress Note Assessment/Plan: 83 yo F with PMH of anxiety/depression, R hip frx (11/2018), recently dx PE (2018) p/w acute encephalopathy. #Acute metabolic encephalopathy: Improving since admission but unclear baseline. No focal deficits. Lower concern for CVA. Suspect confusional episode. - CT head and CTA head/neck negative - Neurology consulted, no further testing warranted - Holding evening gabapentin and elavil (on low doses) - Avoid centrally acting meds as able #Hypothyroidism: Levothyroxine doubled 12/2018, now TSH low. - Decrease LT4 from 100 to 75mcg daily, recheck TFTs in 4-6 weeks #H/o PE: Diagnosed 12/2018. CTA chest this admit with ? new PE. - Increase apixaban from 2.5 to 5mg BID (appropriate dose for PE treatment) - Consider discontinuing anticoagulation all together given her h/o falls #Severe protein calorie malnutrition - Dietary consulted #Recent R SHREYA - PT/OT #Orthostatic hypotension - Continue midodrine (this was started last admission) #Anxiety/depression - Continue buspar. Holding elavil and gabapentin as above VTE ppx: SCDs Code: full Diet: regular Dispo: Remain inpatient, ok for transfer to floor. Subjective: Mentation improved. No longer aphasic. Knows she is at [facility] but doesn 't know date. No pain. Objective: Vital Signs Temp Pulse Resp BP Pulse Ox 36.3 C 93 15 136/84 H 96 01/15/19 11:28 01/15/19 11:28 01/15/19 11:28 01/15/19 11:28 01/15/19 11:28 Laboratory Results 01/15/19 04:35 01/15/19 04:35 01/14/19 01/15/19 01/16/19 05:59 05:59 05:59 Intake Total 550 Output Total 0 Balance 550 PT 14.1 SEC (12.0-15.0) 01/14/19 17:00 INR 1.14 (0.83-1.16) 01/14/19 17:00 - Physical Exam Constitutional: no apparent distress, other (elderly) Eyes: PERRL, anicteric sclera, EOMI Ears, Nose, Mouth, Throat: moist mucous membranes, hearing normal, ears appear normal, no oral mucosal ulcers Cardiovascular: regular rate and rhythym, no murmur, rub, or gallop Respiratory: no respiratory distress, no rales or rhonchi, clear to auscultation Gastrointestinal: normoactive bowel sounds, soft, non-tender abdomen, no palpable masses Genitourinary: no bladder fullness, no bladder tenderness, no renal bruits Skin: no rashes or abrasions, no fluctuance, no induration Musculoskeletal: generalized weakness Neurologic: CN II-XII Intact, other (alert, oriented x2) Psychiatric: encephalopathic ICD10 Worksheet Patient Problems: Problems Problem Status Onset Encephalopathy acute Acute Abrasion Acute Femoral neck fracture Acute
--- NOTE | 2019-01-15 12:21 | GCON ---
[f rep st] CONSULTATION NEUROLOGY CONSULTATION DATE OF CONSULTATION: 01/15/2019 REFERRING PHYSICIAN: Clayton Jacinto MD CHIEF COMPLAINT: Confusion. HISTORY OF PRESENT ILLNESS: The patient is a very pleasant 83-year-old lady with longstanding psychiatric disease on multiple psychotropics. She recently had a hip surgery and was discharged from rehab when she had an episode of confusion. This has now resolved. She had trouble with comprehension and expressing herself during the confusional episode. The patient was brought to the ED for this confusion and a head CT without contrast did not show any bleeding. She is on oral anticoagulation for a pulmonary embolism. CT-A of the head and neck did not show any large vessel occlusion. No seizures. REVIEW OF SYSTEMS: Ten-point review of systems was done only pertinent to the HPI. For past medical history, social history, family history, home medications, allergies, see Dr. Jacinto's note. PHYSICAL EXAM: VITAL SIGNS: Blood pressure 136/84, temperature 36.3, heart rate 80s. GENERAL: Very pleasant, in no distress. NEUROLOGIC: No meningismus. The patient was awake, alert. She has no aphasia now on exam. She names 5/5, follows commands 5/5, and repeats 5/5. 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 Motor exam: No focal weakness and tone is normal throughout. Sensory: Normal to light touch in all 4 extremities. The strength exam is corrected for her recent hip surgery. IMPRESSION/PLAN.: 1. Confusion, resolved. 2. Psychiatric/mood disorder, on multiple psychotropics. 3. Recent hip surgery. Overall, this patient may have had an episode of toxic-metabolic encephalopathy which is multifactorial, and now resolved. She has no meningismus or fever on exam. Head CT without contrast shows no hemorrhage. CTA of the head and neck shows no large vessel occlusion. There was no definitive symptoms of acute neurovascular syndrome. This was likely a confusional episode, as noted above, based on multiple factors, including advanced age, recent surgery, multiple psychotropics, and recent discharge from rehabilitation. Discussed at length. Going forward, when she is medically stable, discharge to long-term facility may be needed. Discussed with the hospitalist team. No further recommendations now. We will continue to follow closely as needed. Please do not hesitate to call if there are any questions or change in this patient's neurologic status. Seventy total minutes floor time; over 50% in counseling and coordination of care. /[id number]/MODL ROBLES
--- NOTE | 2019-01-15 12:43 | WOCRNPDOC ---
WOCRN Advanced Assessment Note - Skin Integrity Problem, Advanced Assess Left Coccyx Dressing Type: Mepilex Border Dressing Description: Intact Integumentary Issue Intervention: Dressing Changed [place] Wound Tissue: Blanching Wound Bed Color: [place], Purple Site Measurement - Head-to-Toe Length X Width X Depth (cm): 2x2x0.1 Pressure Injury Stage: Deep Tissue Injury (DTI) Pressure Injury Present on Admit: Yes Skin Integrity Problem Comment: This very thin woman has a healed wound (as evidenced by minimal scar tissue) to L coccyx. Overlaying that there is a small pink area mostly blanching with a tiny DTI not quite measuring 1x1 cm within. There is also a bit of flakey skin there like shearing scraped the dermis. Cleaned with ns and gauze. Wound gel applied and covered with Mepilex sacral border dressing. Wound care will follow.
--- NOTE | 2019-01-15 13:36 | ASMTCMCOM ---
CM Note CM Note Notes: Pt is an 83 yo F who presents with encephalopathy. Pt was last on and discharged to [facility] on the and then discharged home with [facility] on Tuesday, 01/13. CM spoke with Ali from [facility] who reports they met with pt while at [facility] but did not have a chance to do the Home Assessment prior to this hospital admission. CM spoke with pt who reports her brother Tucker is supportive. She has no family in the area and her brother and sister live in [place]. CM spoke with pt in attempt to complete MDPOA ppwk but pt said she was too tired and wanted to rest. [facility] [employer] requested to follow-up. Pts brother's contacts were on whiteboard in room. Tucker ([phone]) Sister in Law, Sharmila ([phone]) At this time pt reports she does NOT want to return to [facility]. Plan: TBD Date Signed: 01/15/2019 01:35 PM Electronically Signed By:ARTURO Hauser
--- NOTE | 2019-01-15 13:39 | PDMN ---
Medical Necessity Medical necessity: Pt meets inpt criteria per MD order and Neurology GRG, 83 y/ o w/acute encephalopathy presenting w/expressive and receptive aphasia initially requiring ICU level care, IV Haldol for agitation last night, today w/ intermittent confusion, lethargic, only able to ambulate 10 ft w/PT, unsafe for dc. PMHx includes SHREYA in November 2018, recent dx PE, recent dc from SNF, anxiety/ depression. Est LOS>2MN for ongoing management of above.
[2019-01-15] MEDS: busPIRone 5 MG TAB PO SCH (14:35)
[2019-01-15] MEDS ORDERED: APIXABAN 2.5 MG TAB PO SCH (16:01)
[2019-01-15] MEDS: MIRTAZAPINE 15 MG TAB PO SCH (20:08)
[2019-01-15] MEDS: APIXABAN 5 MG TAB PO SCH (20:08)
[2019-01-16] MEDS: LEVOTHYROXINE 100 MCG TAB PO SCH (05:52)
--- NOTE | 2019-01-16 08:18 | HOSPPROG ---
Hospitalist Progress Note Assessment/Plan: 83 yo F with PMH of anxiety/depression, R hip frx (11/2018), recently dx PE (2018) p/w acute encephalopathy. #Acute metabolic encephalopathy: Resolved, back to baseline. Suspect episodic confusion. - Holding evening gabapentin and elavil (on low doses) #Hypoglycemia: Asymptomatic. - Dc SSI, start D5WNS #Hypothyroidism: TSH low - Decrease LT4 from 100 to 75mcg daily, recheck TFTs in 4-6 weeks #H/o PE: Subsegmental, diagnosed 12/2018. CTA chest this admit with ? new small PE. - Increased apixaban from 2.5 to 5mg BID (appropriate dose for PE treatment) - Consider discontinuing after 3 months (or sooner) given her h/o falls #Severe protein calorie malnutrition - Dietary consulted #Recent R SHREYA - PT/OT recommending SNF #Orthostatic hypotension - Continue midodrine (this was started last admission) #Anxiety/depression - Continue buspar. Holding elavil and gabapentin as above VTE ppx: SCDs Code: full Diet: regular Dispo: Therapy services recommending SNF, patient hesitant. Will need to d/w CM. Currently unsafe for dc home. Subjective: Sitting up in chair. Wondering what happened the other day, doesn't remember coming into hospital. Feeling well, wanting to go home. Objective: Vital Signs Temp Pulse Resp BP Pulse Ox 36.5 C 85 18 157/91 H 99 01/16/19 03:41 01/16/19 03:41 01/16/19 03:41 01/16/19 03:41 01/16/19 03:41 Laboratory Results 01/15/19 04:35 01/15/19 04:35 01/15/19 01/16/19 01/17/19 05:59 05:59 05:59 Intake Total 550 100 Output Total 0 650 400 Balance 550 -550 -400 PT 14.1 SEC (12.0-15.0) 01/14/19 17:00 INR 1.14 (0.83-1.16) 01/14/19 17:00 - Physical Exam Constitutional: other (elderly, frail) Eyes: PERRL, anicteric sclera, EOMI Ears, Nose, Mouth, Throat: moist mucous membranes, hearing normal, ears appear normal, no oral mucosal ulcers Cardiovascular: regular rate and rhythym, no murmur, rub, or gallop, No edema Respiratory: no respiratory distress, no rales or rhonchi, clear to auscultation Gastrointestinal: normoactive bowel sounds, soft, non-tender abdomen, no palpable masses Genitourinary: no bladder fullness, no bladder tenderness, no renal bruits Skin: no rashes or abrasions, no fluctuance, no induration Musculoskeletal: generalized weakness Neurologic: AAOx3 Psychiatric: interacting appropriately ICD10 Worksheet Patient Problems: Problems Problem Status Onset Encephalopathy acute Acute Abrasion Acute Femoral neck fracture Acute
[2019-01-16] MEDS: CHOLECALCIFEROL VIT D3 2,000 UNITS TAB/CAP PO SCH (09:19)
[2019-01-16] MEDS: D5W NS 1,000 ML IV SCH ×2 (09:19→22:57)
[2019-01-16] MEDS: MIDODRINE HCL 5 MG TAB PO SCH ×3 (09:19→16:45)
[2019-01-16] MEDS: CALCIUM CARBONATE 500 MG CHEWABLE TAB PO SCH ×3 (09:19→20:43)
[2019-01-16] MEDS: POLYETHYLENE GLYCOL 3350 17 GM PKT PO SCH (09:19)
[2019-01-16] MEDS: APIXABAN 5 MG TAB PO SCH ×2 (09:19→20:43)
[2019-01-16] MEDS: INSULIN LISPRO 100 UNIT/ML SC SCH (09:56)
[2019-01-16] MEDS: busPIRone 5 MG TAB PO SCH (15:13)
--- NOTE | 2019-01-16 16:05 | ASMTCMCOM ---
CM Note CM Note Notes: PT/OT rec SNF. Pt states she will reluctantly consider a SNF other than [facility]. Pt requests referrals sent to [facility] and they can both accept pt. Unable to get pt choice today, she was unarousable this afternoon. The SNF will need [place] insurance auth. Spoke with Dee Dee [phone] at [facility], she reports she has known pt for many years and would recommend if pt go home she would need 24/7 care to be safe. Nikki with [facility] ([phone]) reports [facility] did not get to open pt yet, pt came to [facility]. Nikki reports she rounded at and there was concern for pt going home because there has been some cognitive and physical decline. [facility] can accept pt if she does go home. D/c plan of care: Likely SNF, which is TBD and insurance auth is needed Date Signed: 01/16/2019 04:04 PM Electronically Signed By:YONG Cordon
[2019-01-16] MEDS: MIRTAZAPINE 15 MG TAB PO SCH (20:43)
[2019-01-16] MEDS: LATANOPROST 0.005% 2.5 ML OPHT DROPS EACHEYE SCH ×2 (20:44→20:47)
[2019-01-17] MEDS: LEVOTHYROXINE 100 MCG TAB PO SCH (05:26)
[2019-01-17] MEDS: POLYETHYLENE GLYCOL 3350 17 GM PKT PO SCH (09:13)
[2019-01-17] MEDS: CHOLECALCIFEROL VIT D3 2,000 UNITS TAB/CAP PO SCH (09:15)
[2019-01-17] MEDS: MIDODRINE HCL 5 MG TAB PO SCH ×3 (09:16→15:23)
[2019-01-17] MEDS: APIXABAN 5 MG TAB PO SCH ×2 (09:18→20:52)
[2019-01-17] MEDS: CALCIUM CARBONATE 500 MG CHEWABLE TAB PO SCH ×3 (09:19→20:52)
--- NOTE | 2019-01-17 09:53 | HOSPPROG ---
Hospitalist Progress Note Assessment/Plan: 83 yo F with PMH of anxiety/depression, R hip frx (11/2018), recently dx PE (2018) p/w acute encephalopathy. #Acute metabolic encephalopathy: Resolved, back to baseline. Suspect episodic confusion. - Holding evening gabapentin and elavil (on low doses) #Hypoglycemia: Asymptomatic. Not on meds that would lower. - Stopping D5WNS, encouraging PO intake #Anxiety/depression: rather significant - Continue buspar. Holding elavil and gabapentin as above #Hypothyroidism: TSH low - Decreased LT4 from 100 to 75mcg daily, recheck TFTs in 4-6 weeks #H/o PE: Subsegmental, diagnosed 12/2018. CTA chest this admit with ? new small PE. - Increased apixaban from 2.5 to 5mg BID (appropriate dose for PE treatment) - Consider discontinuing after 3 months (or sooner) given her h/o falls #Severe protein calorie malnutrition - Dietary consulted #Recent R SHREYA - PT/OT recommending SNF #Orthostatic hypotension - Continue midodrine (this was started last admission) VTE ppx: SCDs Code: full Diet: regular Dispo: Therapy services recommending SNF, she is now agreeable. CM working on setting this up, should discharge today. Subjective: Continues to feel well other than rather significant anxiety related to how she will do after rehab. Objective: Vital Signs Temp Pulse Resp BP Pulse Ox 36.7 C 83 16 156/82 H 100 01/17/19 07:53 01/17/19 07:53 01/17/19 07:53 01/17/19 07:53 01/17/19 07:53 Laboratory Results 01/15/19 04:35 01/15/19 04:35 01/16/19 01/17/19 01/18/19 05:59 05:59 05:59 Intake Total 100 975 Output Total 650 1400 300 Balance -550 -425 -300 PT 14.1 SEC (12.0-15.0) 01/14/19 17:00 INR 1.14 (0.83-1.16) 01/14/19 17:00 - Physical Exam Constitutional: no apparent distress, appears nourished, not in pain Eyes: PERRL, anicteric sclera, EOMI Ears, Nose, Mouth, Throat: moist mucous membranes, hearing normal, ears appear normal, no oral mucosal ulcers Cardiovascular: regular rate and rhythym, no murmur, rub, or gallop Respiratory: no respiratory distress, no rales or rhonchi, clear to auscultation Gastrointestinal: normoactive bowel sounds, soft, non-tender abdomen, no palpable masses Genitourinary: no bladder fullness, no bladder tenderness, no renal bruits Skin: no rashes or abrasions, no fluctuance, no induration Musculoskeletal: generalized weakness Neurologic: AAOx3 Psychiatric: interacting appropriately ICD10 Worksheet Patient Problems: Problems Problem Status Onset Encephalopathy acute Acute Abrasion Acute Femoral neck fracture Acute
--- NOTE | 2019-01-17 11:22 | NEUROPROG ---
Assessment: 1. Toxic metabolic encephalopathy, resolved Patient was resume today and remains lucid, awake and alert. No aphasia. No focal weakness. Psychotropic medications have been streamline. She will likely go to a senior care facility. No further recommendations, we will sign off and follow up as needed. Please do not hesitate to call if there are any neurologic changes or questions. Subjective: No new symptoms, remains improved from mental status standpoint Objective: Vital Signs Temp Pulse Resp BP Pulse Ox 36.7 C 83 16 156/82 H 100 01/17/19 07:53 01/17/19 07:53 01/17/19 07:53 01/17/19 07:53 01/17/19 07:53 Laboratory Results 01/15/19 04:35 01/15/19 04:35 01/16/19 01/17/19 01/18/19 05:59 05:59 05:59 Intake Total 100 975 Output Total 650 1400 300 Balance -550 -425 -300 PT 14.1 SEC (12.0-15.0) 01/14/19 17:00 INR 1.14 (0.83-1.16) 01/14/19 17:00 Awake and alert No aphasia Fairly lucid 35 total minutes floor time; over 50% counseling /coordination of care Allergies/Adverse Reactions: bupropion HCl [From Wellbutrin] Allergy (Unknown, Verified 12/13/18 12:51) Other-Enter Comments Penicillins Allergy (Verified 12/13/18 12:51) Unknown
--- NOTE | 2019-01-17 14:54 | ASMTCMCOM ---
CM Note CM Note Notes: Pt chooses [facility] SNF, [facility] alerted to pursue insurance auth. D/c plan of care: [facility] Date Signed: 01/17/2019 02:53 PM Electronically Signed By:YONG Cordon
[2019-01-17] MEDS: busPIRone 5 MG TAB PO SCH (15:23)
--- NOTE | 2019-01-17 15:48 | PDIAF ---
- Diagnosis Code Status: Full Code - Medication Management Additional Medication Instructions: We have discontinued your evening amitriptyline and gabapentin. We have decreased your synthroid from 100 to 75mcg daily. Discharge Medications: electronically signed and located in the Home Medication List. - Orders Services needed: Physical Therapy, Occupational Therapy Diet Texture: Regular Texture Diet, Thin Liquids Wound Care Instructions: Wound care orders: You have a possible deep tissue pressure injury (also known as a bedsore) on your tailbone. To help heal this wound and avoid further injury please do the followin.Reposition yourself frequently, at least every 15 minutes when sitting. Try to stand for at least 3 min every hour so that the tissues fully reperfuse with blood. We recommend sitting on an air cushion. Please never use a doughnut. 2.When youre in bed, try to rest on your side as much as possible, and change position every two hours (for example, turn or tilt from your right side toward your left).~ If you sleep on a sleep number or medical bed, keep the head of the bed below 30 degrees and keep all pressure off your low back for at least 5 minutes at least every two hours.~. 3.As needed, you may use Calazime, dimethicone moisture barrier cream, or any hvfk-oit-bcmdhmz diaper rash cream to help prevent or treat a moisture-related rash to your bottom area and buttocks. 4. Feel free to contact [facility] outpatient Wound Healing Center for an appointment, at , If your wounds open or dont improve, or if you have any further questions or concerns. Froylan Avendaño RN Team Additional Instructions: Please follow up with your primary care doctor in 1-2 weeks. - Follow Up Care Current Providers and Referrals: Patient,NotPresent [Unknown] - As per Instructions
--- NOTE | 2019-01-17 15:48 | PDDCSUM ---
Discharge Summary Discharge Summary: Date of Admission: 01/14/2019 Date of Discharge: 01/17/2019 Consultants: neurology Studies: CTA chest, CTA head/neck, non-contrasted head CT Discharge Diagnoses: 1. Acute toxic/metabolic encephalopathy 2. Asymptomatic hypoglycemia 3. Anxiety, depression 4. Hypothyroidism 5. History of PE (RLL, subsegmental) 6. 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 Orthostatic hypotension on midodrine 8. Severe protein calorie malnutrition Brief Hospital Course: 83 yo F with PMH of anxiety/depression, R hip frx (11/2018), recently dx PE (2018) presented from home with acute onset of confusion. She was recently discharged from SNF to home. One of her home care aids noticed increasing confusion and brought her to the ED. Non-contrasted head CT was without bleed. CTA of head/neck negative for large vessel occlusion. She did not have any seizures. Her symptoms spontaneously improved and she was back to mentating normally. Neurology was consulted who felt that this was episodic confusion, possibly related to her medications vs hypoglycemia vs recent environmental changes (transferring from hospital to SNF to home). Her evening gabapentin and elavil were discontinued. Her blood sugars did occasionally dip into the 60s while hospitalized (likely due to poor PO intake) however she was not symptomatic with this. She was also noted to be over-treated with her thyroid hormone (TSH 63), so her levothyroxine was decreased. Our PT and OT services recommended SNF and she was agreeable to this. Medications: Please refer to EMR for complete list. 1. Stopped evening gabapentin and amitriptyline. 2. Decreased levothyroxine from 100 to 75mcg daily. Follow Up Plan: 1. Repeat thyroid studies in 4-6 weeks 2. PCP in 1-2 weeks to address anxiety 3. Recommend stopping anticoagulation 03/2019 (will have completed 3 months of therapy for 1st episode of PE) Physical Exam: See exam from today's progress note.
--- NOTE | 2019-01-17 17:07 | ASMTCMCOM ---
CM Note CM Note Notes: [employer] insurance auth is not in by close of business, pt updated. In hopes of an early d/c tomorrow, pt is arranged with [facility] for 12:00 in the case the auth does come through. D/c plan: [facility] Date Signed: 01/17/2019 05:06 PM Electronically Signed By:YONG Cordon
[2019-01-17] MEDS: MIRTAZAPINE 15 MG TAB PO SCH (20:52)
[2019-01-17] MEDS: LATANOPROST 0.005% 2.5 ML OPHT DROPS EACHEYE SCH (20:53)
[2019-01-18] MEDS: LEVOTHYROXINE 100 MCG TAB PO SCH (05:19)
[2019-01-18 07:55] VITALS: BP 147/84
--- NOTE | 2019-01-18 08:58 | PDDCSUM ---
Discharge Summary Discharge Summary: Date of Admission: 01/14/2019 Date of Discharge: 01/18/2019 Consultants: neurology Studies: CTA chest, CTA head/neck, non-contrasted head CT Discharge Diagnoses: 1. Acute toxic/metabolic encephalopathy 2. Asymptomatic hypoglycemia 3. Anxiety, depression 4. Hypothyroidism 5. History of PE (RLL, subsegmental) 6. 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 Orthostatic hypotension on midodrine 8. Severe protein calorie malnutrition Brief Hospital Course: 83 yo F with PMH of anxiety/depression, R hip frx (11/2018), recently dx PE (2018) presented from home with acute onset of confusion. She was recently discharged from SNF to home. One of her home care aids noticed increasing confusion and brought her to the ED. Non-contrasted head CT was without bleed. CTA of head/neck negative for large vessel occlusion. She did not have any seizures. Her symptoms spontaneously improved and she was back to mentating normally. Neurology was consulted who felt that this was episodic confusion, possibly related to her medications vs hypoglycemia vs recent environmental changes (transferring from hospital to SNF to home). Her evening gabapentin and elavil were discontinued. Her blood sugars did occasionally dip into the 60s while hospitalized (likely due to poor PO intake) however she was not symptomatic with this. She was also noted to be over-treated with her thyroid hormone (TSH 63), so her levothyroxine was decreased. Our PT and OT services recommended SNF and she was agreeable to this. Medications: Please refer to EMR for complete list. 1. Stopped evening gabapentin and amitriptyline. 2. Decreased levothyroxine from 100 to 75mcg daily. Follow Up Plan: 1. Repeat thyroid studies in 4-6 weeks 2. PCP in 1-2 weeks to address anxiety 3. Recommend stopping anticoagulation 03/2019 (will have completed 3 months of therapy for 1st episode of PE) Physical Exam: Vitals reviewed, afebrile. Alert and oriented. Cachectic and frail. RRR, lungs clear, abdomen soft and nt, no leg edema.
--- NOTE | 2019-01-18 08:59 | PDIAF ---
- Diagnosis Code Status: Full Code - Medication Management Additional Medication Instructions: We have discontinued your evening amitriptyline and gabapentin. We have decreased your synthroid from 100 to 75mcg daily. Discharge Medications: electronically signed and located in the Home Medication List. - Orders Services needed: Physical Therapy, Occupational Therapy Diet Texture: Regular Texture Diet, Thin Liquids Wound Care Instructions: Wound care orders: You have a possible deep tissue pressure injury (also known as a bedsore) on your tailbone. To help heal this wound and avoid further injury please do the followin.Reposition yourself frequently, at least every 15 minutes when sitting. Try to stand for at least 3 min every hour so that the tissues fully reperfuse with blood. We recommend sitting on an air cushion. Please never use a doughnut. 2.When youre in bed, try to rest on your side as much as possible, and change position every two hours (for example, turn or tilt from your right side toward your left).~ If you sleep on a sleep number or medical bed, keep the head of the bed below 30 degrees and keep all pressure off your low back for at least 5 minutes at least every two hours.~. 3.As needed, you may use Calazime, dimethicone moisture barrier cream, or any qsia-whd-ckdiaiy diaper rash cream to help prevent or treat a moisture-related rash to your bottom area and buttocks. 4. Feel free to contact [facility] outpatient Wound Healing Center for an appointment, at , If your wounds open or dont improve, or if you have any further questions or concerns. Froylan Avendaño RN Team Additional Instructions: Please follow up with your primary care doctor in 1-2 weeks. RECOMMEND REPEAT THYROID STUDIES IN 4-6 WEEKS. RECOMMEND STOPPING ANTICOAGULATION 03/2019 (WILL HAVE COMPLETED 3 MONTHS OF THERAPY FOR 1ST EPISODE OF SMALL PULMONARY EMPOLUS) - Follow Up Care Current Providers and Referrals: Patient,NotPresent [Unknown] - As per Instructions
--- NOTE | 2019-01-18 09:11 | ASMTLACE ---
LACE Length of stay for Answers: 4-6 days current admission Acuity / Level of Answers: Yes Care: Did the patient have an inpatient admission? Comorbidities - select Answers: Other Notes: PE; Hypothyroid all that apply # of Emergency department Answers: 3-4 visits in the last 6 months Social determinants Answers: Mental health diagnosis (anxiety, depression, pers onality disorders, etc.) Score: 14 Date Signed: 01/18/2019 09:10 AM Electronically Signed By:YONG Cordon
[2019-01-18] MEDS: CHOLECALCIFEROL VIT D3 2,000 UNITS TAB/CAP PO SCH (09:21)
[2019-01-18] MEDS: APIXABAN 5 MG TAB PO SCH (09:22)
[2019-01-18] MEDS: MIDODRINE HCL 5 MG TAB PO SCH (09:22)
[2019-01-18] MEDS: CALCIUM CARBONATE 500 MG CHEWABLE TAB PO SCH (09:22)
[2019-01-18] MEDS: POLYETHYLENE GLYCOL 3350 17 GM PKT PO SCH (09:23)
--- NOTE | 2019-01-18 11:44 | ASMTCMCOM ---
CM Note CM Note Notes: Pt medically stable for d/c to [facility] SNF. Orders sent in Allscripts. 12:00 transport still standing. KISHAN Hinojosa to call report. JAYCEE palliative notified in Allscripts, [facility] updated. Date Signed: 01/18/2019 11:43 AM Electronically Signed By:YONG Cordon
--- NOTE | 2019-01-19 09:46 | ASDISCHSUM ---
Discharge Information Plan Status:SNF Medically Cleared to Leave: Discharge Date:01/18/2019 12:20 PM D/C Disposition: ADT D/C Disposition:Fdc Facility Projected Discharge Date:01/17/2019 11:00 AM Transportation at D/C: Discharge Delay Reason: Follow-Up Date:01/17/2019 11:00 AM Discharge Slot: Final Diagnosis: Placement Information Referral Type:*Home Health Care Services Referral ID:[id number] Provider Name: Address 1: Phone Number: Address 2: Fax Number: City: Selection Factors: State: Referral Type:*Intermediate/SNF Referral ID:[id number] Provider Name:[facility] Address 1:[address] Address 2: City:[place] Selection Factors: State:[place] Referral Type:Palliative Care Referral ID:[id number] Provider Name:[facility] Address 1:[address] Address 2: City:[place] Selection Factors: State:[place] Patient Contact Information Contact Name:CARLOS Relationship:Galen Address: Work Phone: City: [facility] Phone: [facility] Code: Email: Financial Information Financial Class:Medicare Advantage Plans Primary Plan Desc:[employer] MED[employer] ADV Primary Plan Number:[id number] Secondary Plan Desc: Secondary Plan Number: Assessment Information LACE LACE Length of stay for Answers: 4-6 days current admission Acuity / Level of Answers: Yes Care: Did the patient have an inpatient admission? Comorbidities - select Answers: Other Notes: PE; Hypothyroid all that apply # of Emergency department Answers: 3-4 visits in the last 6 months Social determinants Answers: Mental health diagnosis (anxiety, depression, pers onality disorders, etc.) Score: 14 Date Signed: 01/18/2019 09:10 AM Electronically Signed By:YONG Cordon [facility] MAGGIE Progress Note MAGGIE Note MAGGIE Note Notes: Pt is an 83 yo F who presents with encephalopathy. Pt was last on and discharged to [facility] on the and then discharged home with [facility] on Tuesday, 01/13. MAGGIE spoke with Ali from [facility] who reports they met with pt while at [facility] but did not have a chance to do the Home Assessment prior to this hospital admission. MAGGIE spoke with pt who reports her brother Tucker is supportive. She has no family in the area and her brother and sister live in [place]. MAGGIE spoke with pt in attempt to complete MDPOA ppwk but pt said she was too tired and wanted to rest. Quality Nurse requested to follow-up. Pts brother's contacts were on whiteboard in room. Tucker ([phone]) Sister in Law, Sharmila ([phone]) At this time pt reports she does NOT want to return to [facility]. Plan: TBD Date Signed: 01/15/2019 01:35 PM Electronically Signed By:ARTURO Hauser [facility] MAGGIE Progress Note MAGGIE Note MAGGIE Note Notes: PT/OT rec SNF. Pt states she will reluctantly consider a SNF other than [facility]. Pt [facility] and they can both accept pt. Unable to get pt choice today, she was unarousable this afternoon. The SNF will need [employer] insurance auth. Spoke with Dee Dee [phone] at [facility], she reports she has known pt for many years and would recommend if pt go home she would need 24/7 care to be safe. Nikki with [facility] ([phone]) reports [facility] did not get to open pt yet, pt came to [facility]. Nikki reports she rounded at and there was concern for pt going home because there has been some cognitive and physical decline. [facility] can accept pt if she does go home. D/c plan of care: Likely SNF, which is TBD and insurance auth is needed Date Signed: 01/16/2019 04:04 PM Electronically Signed By:YONG Cordon [facility] CM Progress Note CM Note CM Note Notes: Pt chooses [facility], [facility] alerted to pursue insurance auth. D/c plan of care: [facility] Date Signed: 01/17/2019 02:53 PM Electronically Signed By:YONG Cordon [facility] CM Progress Note CM Note CM Note Notes: [employer] insurance auth is not in by close of business, pt updated. In hopes of an early d/c tomorrow, pt is arranged with [facility] transport for 12:00 in the case the auth does come through. D/c plan: [facility] Date Signed: 01/17/2019 05:06 PM Electronically Signed By:YONG Cordon [facility] CM Progress Note CM Note CM Note Notes: Pt medically stable for d/c to [facility]. Orders sent in Allscripts. 12:00 transport still standing. KISHAN Hinojosa to call report. JAYCEE palliative notified in [employer], [facility] updated. Date Signed: 01/18/2019 11:43 AM Electronically Signed By:YONG Cordon Intervention Information Intervention Type:*IM-Signed Date of Service:01/18/2019 10:04 AM Patient Type:Inpatient Staff Member:Johanny Hyde Hours: Discipline: Severity: Comment:
== END 2019-01-18 12:20 | DRG 91 ==
LOC: EDUNIT# → EDBD → F2N 19:30 → F3N 01-15 13:12
PROVIDERS: ADMIT Internal Medicine; ATTEND Internal Medicine
DX: G92 Toxic encephalopathy (principal); E43 Unspecified severe protein-calorie malnutrition; E16.2 Hypoglycemia, unspecified; F32.9 Major depressive disorder, single episode, unspecified; F41.9 Anxiety disorder, unspecified; E03.9 Hypothyroidism, unspecified; I95.1 Orthostatic hypotension; Z86.711 Personal history of pulmonary embolism; Z96.641 Presence of right artificial hip joint; Z79.01 Long term (current) use of anticoagulants
CPT/HCPCS: 82435-PO; 82565-PO; 82947-PO; 84132-PO; 84295-PO; 84481-90; 84484-ER; 84520-PO; 85014-ER; 92507-GN; 92523-GN; 96374; 97116-GP; 97161-GP; 97166-GO; 97530-GO; 97530-GP; 97535-GO; J1170; J1630; J1815; J2060; J2250; J2405; Q9967